=== PATIENT | male | born 1940 | race Caucasian/White ===

== ENCOUNTER 2018-06-17 12:15 | Emergency (ER) | payer MEDICARE ==
[2018-06-17 12:22] VITALS: RESP 18
--- NOTE | 2018-06-17 12:27 | ED ---
Chest Pain HPI - General Chief Complaint: Chest Pain Stated Complaint: chest pain Time Seen by Provider: 06/17/18 12:22 Source: patient, RN notes reviewed, old records reviewed Mode of arrival: ambulatory Limitations: no limitations - History of Present Illness Initial Comments: This is a 77-year-old male the ER for evaluation. Patient has history of high blood pressure coming with left-sided chest pain. No trauma. No fevers no cough or congestion occasional shortness of breath, chest pain is left scapular rating around anterior chest. Worse with exertion worse with movement. No improving factors MD Complaint: chest pain -: days(s) Onset: during rest, during exertion Pain Location: left chest Pain Radiation: back Severity: moderate Severity scale (1-10): 5 Quality: aching, sharp Consistency: constant Improves With: nothing Worsens With: nothing Treatments Prior to Arrival: none - Related Data Home Medications Medication Instructions Recorded Confirmed Finasteride [Proscar] 5 mg PO DAILY 06/17/18 06/17/18 amLODIPine [Norvasc] 10 mg PO DAILY 06/17/18 06/17/18 Allergies Allergy/AdvReac Type Severity Reaction Status Date / Time No Known Allergies Allergy Verified 06/17/18 13:16 Review of Systems ROS Statement: Those systems with pertinent positive or pertinent negative responses have been documented in the HPI. ROS Other: All systems not noted in ROS Statement are negative. Past Medical History Past Medical History: Hypertension, Prostate Disorder, Pulmonary Embolus (PE) Additional Past Medical History / Comment(s): PE to right lung History of Any Multi-Drug Resistant Organisms: None Reported Past Surgical History: No Surgical Hx Reported Past Psychological History: No Psychological Hx Reported Smoking Status: Never smoker Past Alcohol Use History: Occasional Past Drug Use History: None Reported General Exam Limitations: no limitations General appearance: alert, in no apparent distress Head exam: Present: atraumatic, normocephalic, normal inspection Eye exam: Present: normal appearance, PERRL, EOMI. Absent: scleral icterus, conjunctival injection, periorbital swelling ENT exam: Present: normal exam, mucous membranes moist Neck exam: Present: normal inspection. Absent: tenderness, meningismus, lymphadenopathy Respiratory exam: Present: normal lung sounds bilaterally. Absent: respiratory distress, wheezes, rales, rhonchi, stridor Cardiovascular Exam: Present: regular rate, normal rhythm, normal heart sounds. Absent: systolic murmur, diastolic murmur, rubs, gallop, clicks GI/Abdominal exam: Present: soft, normal bowel sounds. Absent: distended, tenderness, guarding, rebound, rigid Extremities exam: Present: normal inspection, full ROM, normal capillary refill. Absent: tenderness, pedal edema, joint swelling, calf tenderness Back exam: Present: normal inspection Neurological exam: Present: alert, oriented X3, CN II-XII intact Psychiatric exam: Present: normal affect, normal mood Skin exam: Present: warm, dry, intact, normal color. Absent: rash Course Vital Signs 06/17/18 06/17/18 06/17/18 12:17 12:47 15:13 Temperature 97.7 F 98 F Pulse Rate 60 64 Pulse Rate [ 80 Bilateral Sitting] Respiratory 18 18 Rate Blood Pressure 148/76 144/94 O2 Sat by Pulse 99 98 Oximetry Chest Pain MDM - MDM 27 male the ER with left-sided chest pain, chest pain is been persistent times a few days now. Worsening. CT is negative for acute disease. Patient be admitted for cardiac observation Critical Care Time Critical Care Time: Yes Total Critical Care Time: 31 Disposition Clinical Impression: Chest pain Disposition: HOME SELF-CARE Condition: Good Instructions: Chest Pain (ED) Is patient prescribed a controlled substance at d/c from ED?: No Referrals: Nonstaff,Physician [REFERRING] - 1-2 days
[2018-06-17 13:08] LABS: Basophils # (A) 0.1 k/uL (0-0.2); Basophils % (A) 1 %; Eosinophils # (A) 0.2 k/uL (0-0.7); Eosinophils % (A) 3 %; Lymphocytes # (A) 1.7 k/uL (1.0-4.8); Lymphocytes % (A) 23 %; MCH 29.3 pg (25.0-35.0); MCV 91.6 fL (80.0-100.0); Mean Platelet Volume 6.9; Monocytes # (A) 0.5 k/uL (0-1.0); Monocytes % (A) 6 %; Neutrophils % (A) 66 %; Platelet Count 248 k/uL (150-450); RDW 13.5 % (11.5-15.5); WBC 7.5 k/uL (3.8-10.6)
--- NOTE | 2018-06-17 13:15 | XR ---
EXAMINATION TYPE: XR chest 2V DATE OF EXAM: 06/17/2018 COMPARISON: NONE HISTORY: Chest pain and hypertension TECHNIQUE: Frontal and lateral views of the chest are obtained. FINDINGS: There is no focal air space opacity, pleural effusion, or pneumothorax seen. The cardiac silhouette size is mildly enlarged. Old healed right posterior rib fractures are noted. Multilevel mi ld degenerative changes of the thoracic spine are seen. Possible right humeral head bone island is we ll-circumscribed. IMPRESSION: No acute cardiopulmonary process.
[2018-06-17 13:22] LABS: Albumin 4.2 g/dL (3.5-5.0); Total Protein 7.2 g/dL (6.3-8.2)
[2018-06-17 13:23] LABS: Prothrombin Time 10.2 sec (9.0-12.0)
[2018-06-17 13:25] LABS: Potassium 4.4 mmol/L (3.5-5.1)
[2018-06-17 13:34] LABS: Partial Thromboplastin Time 20.6 sec (22.0-30.0)
[2018-06-17 13:36] LABS: Creatine Kinase 39 U/L (55-170)
[2018-06-17 13:49] LABS: Creatine Kinase MB 0.6 ng/mL (0.0-2.4); Troponin I <0.012 ng/mL (0.000-0.034)
[2018-06-17 15:13] VITALS: BP 144/94; PULSE 64; TEMP 98
[2018-06-17] MEDS ORDERED: NITROGLYCERIN SL TABS 0.4 MG TAB SUBLINGUAL PRN (16:33)
[2018-06-17] MEDS ORDERED: ASPIRIN 81 MG PO STA (16:33)
[2018-06-17] MEDS ORDERED: MORPHINE SULFATE 4 MG/ML SYRINGE IV PRN (16:33)
[2018-06-17] MEDS ORDERED: SODIUM CHLORIDE 0.9% 1,000 ML IV SCH (16:45)
[2018-06-18] MEDS ORDERED: ATORVASTATIN 80 MG TAB PO SCH (09:00)
[2018-06-18] MEDS ORDERED: ASPIRIN 325 MG TAB PO SCH (09:00)
== END 2018-06-17 15:13 | disposition home or self-care (01) ==
LOC: EC 12:15
DX: R07.89 Other chest pain (principal); R06.02 Shortness of breath; M54.6 Pain in thoracic spine; I10 Essential (primary) hypertension; N42.9 Disorder of prostate, unspecified; Z79.899 Other long term (current) drug therapy
CPT/HCPCS: 36415; 71046; 80053; 82550; 82553; 83735; 84484; 85025; 85610; 85730; 99291

== ENCOUNTER 2019-09-17 21:52 | Emergency (ER) | payer MEDICARE, OTHER ==
[2019-09-17 22:09] VITALS: BP 136/78; PULSE 78; RESP 18; TEMP 97.9
[2019-09-17] MEDS ORDERED: LIDOCAINE 1% INJ 10MG/ML (20 ML MDV) SQ ONE (22:14)
--- NOTE | 2019-09-17 22:38 | XR ---
EXAMINATION TYPE: XR finger LT DATE OF EXAM: 09/17/2019 COMPARISON: NONE HISTORY: Laceration TECHNIQUE: 3 views FINDINGS: There is some spurring at the IP joint of the thumb. I see no fracture nor dislocation. The re is no evidence of a foreign body. 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 No fracture seen.
--- NOTE | 2019-09-17 23:03 | ED ---
General Adult HPI - General Chief complaint: Wound/Laceration Stated complaint: Thumb lac Time Seen by Provider: 09/17/19 22:02 Source: patient, RN notes reviewed Mode of arrival: ambulatory Limitations: no limitations - History of Present Illness Initial comments: 79-year-old male presents to the emergency determine for a chief complaint of laceration. Patient states he was cutting vegetables when he accidentally cut his left thumb with a knife. He states that he was adequate, and but could not get the bleeding to stop as he takes Elavil class so did decide to be seen. States he cut it about 3 hours prior to arrival. She denies any difficulty moving his thumb. Denies any decreased sensation in the left thumb. Denies any other complaints or injuries at this time. States tetanus is up-to-date.Patient has no other complaints at this time including shortness of breath, chest pain, abdominal pain, nausea or vomiting, headache, or visual changes. - Related Data Home Medications Medication Instructions Recorded Confirmed Finasteride [Proscar] 5 mg PO DAILY 06/17/18 06/17/18 amLODIPine [Norvasc] 10 mg PO DAILY 06/17/18 06/17/18 Allergies Allergy/AdvReac Type Severity Reaction Status Date / Time No Known Allergies Allergy Verified 06/17/18 13:16 Review of Systems ROS Statement: Those systems with pertinent positive or pertinent negative responses have been documented in the HPI. ROS Other: All systems not noted in ROS Statement are negative. Past Medical History Past Medical History: Hypertension, Prostate Disorder, Pulmonary Embolus (PE) Additional Past Medical History / Comment(s): PE to right lung History of Any Multi-Drug Resistant Organisms: None Reported Past Surgical History: No Surgical Hx Reported Past Psychological History: No Psychological Hx Reported Smoking Status: Never smoker Past Alcohol Use History: Occasional Past Drug Use History: None Reported General Exam Limitations: no limitations General appearance: alert, in no apparent distress Head exam: Present: atraumatic, normocephalic, normal inspection Eye exam: Present: normal appearance, PERRL, EOMI. Absent: scleral icterus, conjunctival injection, periorbital swelling ENT exam: Present: normal exam, mucous membranes moist Neck exam: Present: normal inspection, full ROM. Absent: tenderness, meningismus, lymphadenopathy Respiratory exam: Present: normal lung sounds bilaterally. Absent: respiratory distress, wheezes, rales, rhonchi, stridor Cardiovascular Exam: Present: regular rate, normal rhythm, normal heart sounds. Absent: systolic murmur, diastolic murmur, rubs, gallop, clicks Extremities exam: Present: full ROM (Full range motion of the left thumb.), tenderness, normal capillary refill (Capillary refill less than 2 seconds in the left thumb.), other (Patient has a 3 cm laceration noted to the finger pad of the left thumb. I do not see any deep structure injury.). Absent: pedal edema, joint swelling, calf tenderness Course Vital Signs 09/17/19 22:04 Temperature 97.9 F Pulse Rate 78 Respiratory 18 Rate Blood Pressure 136/78 O2 Sat by Pulse 98 Oximetry Procedures - Laceration Laceration #1 Consent Obtained: verbal consent Indication: laceration Site: hand Size (cm): 3 Description: linear Depth: simple, single layer Anesthetic Used: lidocaine 1% Anesthesia Technique: local infiltration Amount (mls): 4 Pre-repair: wound explored, irrigated extensively Type of Sutures: other (Ethilon) Size of Sutures: 5-0 Number of Sutures: 8 Technique: simple, interrupted Patient Tolerated Procedure: well, no complications Medical Decision Making - Medical Decision Making X-ray reveals no fracture seen. No evidence of foreign body. Wound was cleaned thoroughly with iodine followed by saline pressure irrigation. 8 sutures were applied. Does not well approximated. Tetanus is up-to-date. I discussed monitoring for signs of infection. Discussed return parameters for this or any worsening symptoms. He will return in 7-10 days for suture removal. Disposition Clinical Impression: Laceration Disposition: HOME SELF-CARE Condition: Good Instructions (If sedation given, give patient instructions): Care For Your Stitches (ED), Laceration (ED) Additional Instructions: Please keep the area clean. Monitor for signs of infection such as spreading or streaking redness, drainage, or fever. Return in 7-10 days for suture removal. Return if you have any complications prior to that return to the ED. Otherwise follow-up with primary care. Is patient prescribed a controlled substance at d/c from ED?: No Referrals: Basilio Mejia MD [REFERRING] - 1-2 days Time of Disposition: 23:02
== END 2019-09-17 23:08 | disposition home or self-care (01) ==
LOC: EC 21:52
DX: S61.012A Laceration without foreign body of left thumb without damage to nail, initial encounter (principal); I10 Essential (primary) hypertension; N42.9 Disorder of prostate, unspecified; W26.0XXA Contact with knife, initial encounter; Y93.89 Activity, other specified
CPT/HCPCS: 73140; 99283; 12002; J2001

== ENCOUNTER 2019-10-18 18:01 | Emergency (ER) | payer MEDICARE, OTHER ==
[2019-10-18] MEDS ORDERED: IBUPROFEN 600 MG TAB PO STA (18:13)
[2019-10-18] MEDS ORDERED: cefTRIAXone IN SWFI 1,000 MG/10 ML SYRINGE IVP STA (18:13)
[2019-10-18] MEDS ORDERED: ACETAMINOPHEN TAB 500 MG TAB PO STA (18:13)
--- NOTE | 2019-10-18 18:23 | ED ---
General Adult HPI - General Chief complaint: Fever Stated complaint: dizziness Time Seen by Provider: 10/18/19 18:05 Source: patient, family, RN notes reviewed, old records reviewed Mode of arrival: wheelchair Limitations: no limitations - History of Present Illness Initial comments: This is a 79-year-old male who presents to the emergency department because he had prostate biopsy yesterday and today he was spiking a fever feeling weak. He denies dysuria hematuria or urinary frequency. Patient states he has a little bit of a cough but no shortness of breath or difficulty breathing. Patient denies any chest pain. Patient any nausea vomiting diarrhea. Patient's temp at home was 104 according to the . did not give any medicine for the fever. Patient denies any abdominal pain. - Related Data Home Medications Medication Instructions Recorded Confirmed Finasteride [Proscar] 5 mg PO DAILY 06/17/18 06/17/18 amLODIPine [Norvasc] 10 mg PO DAILY 06/17/18 06/17/18 Previous Rx's Medication Instructions Recorded Ciprofloxacin HCl [Cipro] 500 mg PO Q12HR #20 tablet 10/18/19 Allergies Allergy/AdvReac Type Severity Reaction Status Date / Time No Known Allergies Allergy Verified 10/18/19 18:05 Review of Systems ROS Statement: Those systems with pertinent positive or pertinent negative responses have been documented in the HPI. ROS Other: All systems not noted in ROS Statement are negative. Past Medical History Past Medical History: Hypertension, Prostate Disorder, Pulmonary Embolus (PE) Additional Past Medical History / Comment(s): PE to right lung History of Any Multi-Drug Resistant Organisms: None Reported Past Surgical History: No Surgical Hx Reported Additional Past Surgical History / Comment(s): prostate biopsy Past Psychological History: No Psychological Hx Reported Smoking Status: Never smoker Past Alcohol Use History: Occasional Past Drug Use History: None Reported General Exam - General Exam Comments Initial Comments: GENERAL: Patient is well-developed and well-nourished. Patient is nontoxic and well- hydrated and is in mild distress. ENT: Neck is soft and supple. No significant lymphadenopathy is noted. Oropharynx is clear. Moist mucous membranes. Neck has full range of motion without eliciting any pain. EYES: The sclera were anicteric and conjunctiva were pink and moist. Extraocular movements were intact and pupils were equal round and reactive to light. Eyelids were unremarkable. PULMONARY: Unlabored respirations. Good breath sounds bilaterally. No audible rales rhonchi or wheezing was noted. CARDIOVASCULAR: There is a regular rate and rhythm without any murmurs gallops or rubs. ABDOMEN: Soft and nontender with normal bowel sounds. SKIN: Skin is clear with no lesions or rashes and otherwise unremarkable. NEUROLOGIC: Patient is alert and oriented x3. Cranial nerves II through XII are grossly intact. Motor and sensory are also intact. Normal speech, volume and content. Symmetrical smile. MUSCULOSKELETAL: Normal extremities with adequate strength and full range of motion. LYMPHATICS: No significant lymphadenopathy is noted PSYCHIATRIC: Normal psychiatric evaluation. Limitations: no limitations Course Vital Signs 10/18/19 10/18/19 10/18/19 18:02 19:14 19:20 Temperature 102.9 F H 101.5 F H Pulse Rate 112 H 86 96 Respiratory 20 18 20 Rate Blood Pressure 146/79 134/79 115/97 O2 Sat by Pulse 94 L 98 95 Oximetry Medical Decision Making - Medical Decision Making EKG shows a sinus rhythm at 99 bpm IN interval is 286 QRS is 86 QT interval is 298 QT C is 382. Patient's EKG shows no ST segment elevation or depression. Chest x-ray shows no acute abnormality. I gave the patient 2 g Rocephin assuming that the patient had a potential infection postop. - Lab Data Result diagrams: 10/18/19 18:25 10/18/19 18:25 Lab Results 10/18/19 10/18/19 10/18/19 Range/Units 18:25 18:25 18:25 WBC 12.8 H (3.8-10.6) k/uL RBC 4.48 (4.30-5.90) m/uL Hgb 13.7 (13.0-17.5) gm/dL Hct 40.4 (39.0-53.0) % MCV 90.2 (80.0-100.0) fL MCH 30.5 (25.0-35.0) pg MCHC 33.8 (31.0-37.0) g/dL RDW 12.9 (11.5-15.5) % Plt Count 217 (150-450) k/uL Neutrophils % 89 % Lymphocytes % 5 % Monocytes % 4 % Eosinophils % 2 % Basophils % 0 % Neutrophils # 11.5 H (1.3-7.7) k/uL Lymphocytes # 0.6 L (1.0-4.8) k/uL Monocytes # 0.5 (0-1.0) k/uL Eosinophils # 0.2 (0-0.7) k/uL Basophils # 0.0 (0-0.2) k/uL PT 10.2 (9.0-12.0) sec INR 1.0 (<1.2) APTT 20.5 L (22.0-30.0) sec Sodium 134 L (137-145) mmol/L Potassium 3.8 (3.5-5.1) mmol/L Chloride 105 (98-107) mmol/L Carbon Dioxide 21 L (22-30) mmol/L Anion Gap 8 mmol/L BUN 20 (9-20) mg/dL Creatinine 0.95 (0.66-1.25) mg/dL Est GFR (CKD-EPI)AfAm 89 (>60 ml/min/1.73 sqM) Est GFR (CKD-EPI)NonAf 77 (>60 ml/min/1.73 sqM) Glucose 107 H (74-99) mg/dL Plasma Lactic Acid [place] (0.7-2.0) mmol/L Calcium 9.6 (8.4-10.2) mg/dL Total Bilirubin 1.1 (0.2-1.3) mg/dL AST 22 (17-59) U/L ALT 14 (4-49) U/L Alkaline Phosphatase 59 (38-126) U/L Total Protein 6.9 (6.3-8.2) g/dL Albumin 4.0 (3.5-5.0) g/dL Urine Color Urine Appearance (Clear) Urine pH (5.0-8.0) Ur Specific [place] (1.001-1.035) Urine Protein (Negative) Urine Glucose (UA) (Negative) Urine Ketones (Negative) Urine Blood (Negative) Urine Nitrite (Negative) Urine Bilirubin (Negative) Urine Urobilinogen (<2.0) mg/dL Ur Leukocyte Esterase (Negative) Urine RBC (0-5) /hpf Urine WBC (0-5) /hpf Hyaline Casts (0-2) /lpf Urine Mucus (None) /hpf Influenza Type A RNA (Not Detectd) Influenza Type B (PCR) (Not Detectd) 10/18/19 10/18/19 10/18/19 Range/Units 18:25 18:25 18:25 WBC (3.8-10.6) k/uL RBC (4.30-5.90) m/uL Hgb (13.0-17.5) gm/dL Hct (39.0-53.0) % MCV (80.0-100.0) fL MCH (25.0-35.0) pg MCHC (31.0-37.0) g/dL RDW (11.5-15.5) % Plt Count (150-450) k/uL Neutrophils % % Lymphocytes % % Monocytes % % Eosinophils % % Basophils % % Neutrophils # (1.3-7.7) k/uL Lymphocytes # (1.0-4.8) k/uL Monocytes # (0-1.0) k/uL Eosinophils # (0-0.7) k/uL Basophils # (0-0.2) k/uL PT (9.0-12.0) sec INR (<1.2) APTT (22.0-30.0) sec Sodium (137-145) mmol/L Potassium (3.5-5.1) mmol/L Chloride (98-107) mmol/L Carbon Dioxide (22-30) mmol/L Anion Gap mmol/L BUN (9-20) mg/dL Creatinine (0.66-1.25) mg/dL Est GFR (CKD-EPI)AfAm (>60 ml/min/1.73 sqM) Est GFR (CKD-EPI)NonAf (>60 ml/min/1.73 sqM) Glucose (74-99) mg/dL Plasma Lactic Acid [place] 1.2 (0.7-2.0) mmol/L Calcium (8.4-10.2) mg/dL Total Bilirubin (0.2-1.3) mg/dL AST (17-59) U/L ALT (4-49) U/L Alkaline Phosphatase (38-126) U/L Total Protein (6.3-8.2) g/dL Albumin (3.5-5.0) g/dL Urine Color Yellow Urine Appearance Clear (Clear) Urine pH 5.5 (5.0-8.0) Ur Specific [place] 1.018 (1.001-1.035) Urine Protein Negative (Negative) Urine Glucose (UA) Negative (Negative) Urine Ketones Negative (Negative) Urine Blood Small H (Negative) Urine Nitrite Negative (Negative) Urine Bilirubin Negative (Negative) Urine Urobilinogen <2.0 (<2.0) mg/dL Ur Leukocyte Esterase Small H (Negative) Urine RBC 33 H (0-5) /hpf Urine WBC 27 H (0-5) /hpf Hyaline Casts 3 H (0-2) /lpf Urine Mucus Rare H (None) /hpf Influenza Type A RNA Not Detected (Not Detectd) Influenza Type B (PCR) Not Detected (Not Detectd) Disposition Clinical Impression: Postoperative infection, UTI (urinary tract infection) Disposition: HOME SELF-CARE Condition: Good Instructions (If sedation given, give patient instructions): Urinary Tract Infection in Men (ED) Prescriptions: Ciprofloxacin HCl [Cipro] 500 mg PO Q12HR #20 tablet Is patient prescribed a controlled substance at d/c from ED?: No Referrals: Jaden Pacheco DO [Primary Care Provider] - 1-2 days Time of Disposition: 19:53
[2019-10-18 18:48] LABS: Basophils % (A) 0 %; Eosinophils # (A) 0.2 k/uL (0-0.7); Eosinophils % (A) 2 %; HCT 40.4 % (39.0-53.0); HGB 13.7 gm/dL (13.0-17.5); Lymphocytes # (A) 0.6 k/uL (1.0-4.8); Lymphocytes % (A) 5 %; MCH 30.5 pg (25.0-35.0); MCHC 33.8 g/dL (31.0-37.0); MCV 90.2 fL (80.0-100.0); Mean Platelet Volume 7.2; Monocytes # (A) 0.5 k/uL (0-1.0); Monocytes % (A) 4 %; Neutrophils # (A) 11.5 k/uL (1.3-7.7); Neutrophils % (A) 89 %; Platelet Count 217 k/uL (150-450); RBC 4.48 m/uL (4.30-5.90); RDW 12.9 % (11.5-15.5); WBC 12.8 k/uL (3.8-10.6)
[2019-10-18 18:56] LABS: Calcium 9.6 mg/dL (8.4-10.2); Potassium 3.8 mmol/L (3.5-5.1); Total Bilirubin 1.1 mg/dL (0.2-1.3); Total Protein 6.9 g/dL (6.3-8.2)
[2019-10-18 19:04] LABS: Appearance,Urine Clear (Clear); Bilirubin,Urine Negative (Negative); Blood,Urine Small (Negative); Color,Urine Yellow; Glucose,Urine (UA) Negative (Negative); Hyaline Casts,Urine 3 /lpf (0-2); Ketones,Urine Negative (Negative); Leukocyte Esterase,Urine Small (Negative); Mucus,Urine Rare /hpf; Nitrite,Urine Negative (Negative); PH, Urine 5.5 (5.0-8.0); Protein,Urine Negative (Negative); RBC,Urine 33 /hpf (0-5); Specific Gravity,Urine 1.018 (1.001-1.035); Urobilinogen,Urine <2.0 mg/dL (<2.0); WBC,Urine 27 /hpf (0-5)
[2019-10-18 19:09] LABS: Prothrombin Time 10.2 sec (9.0-12.0)
[2019-10-18] MEDS: SODIUM CHLORIDE 0.9% 500 ML 500 ML IV SCH ×3 (19:10→20:45)
[2019-10-18 19:13] LABS: Partial Thromboplastin Time 20.5 sec (22.0-30.0)
--- NOTE | 2019-10-18 19:30 | XR ---
EXAMINATION TYPE: XR chest 2V DATE OF EXAM: 10/18/2019 COMPARISON: June 17, 2018 HISTORY: Fever TECHNIQUE: FINDINGS: Heart is mildly enlarged. There is no heart failure. Lungs are clear of consolidation. Cost ophrenic angles are clear. Bony thorax is intact. IMPRESSION: Mild cardiomegaly. No active cardiopulmonary disease. No change.
[2019-10-18 20:48] VITALS: BP 127/71; PULSE 87; RESP 16; TEMP 98.3
== END 2019-10-18 21:15 | disposition home or self-care (01) ==
LOC: EC 18:01 → SUPCPDRO 18:01 → EC 21:15
DX: N39.0 Urinary tract infection, site not specified (principal); T81.40XA Infection following a procedure, unspecified, initial encounter; I10 Essential (primary) hypertension; Z79.899 Other long term (current) drug therapy; Z86.711 Personal history of pulmonary embolism
CPT/HCPCS: 36415; 80053; 83605; 85025; 85610; 85730; 81001; 87040; 87086; 87077; 87186; 87502; 71046; 99284; 96365; 96375; 96361; J0696

== ENCOUNTER 2019-10-19 03:49 | Inpatient (IN) | payer MEDICARE, OTHER ==
[2019-10-19] MEDS ORDERED: ACETAMINOPHEN TAB 325 MG TAB PO STA (03:59)
[2019-10-19] MEDS ORDERED: IBUPROFEN 600 MG TAB PO STA (03:59)
[2019-10-19] MEDS: SODIUM CHLORIDE 0.9% 500 ML 500 ML IV SCH (04:10)
[2019-10-19 04:17] LABS: Basophils % (A) 0 %; Eosinophils # (A) 0.1 k/uL (0-0.7); Eosinophils % (A) 2 %; HCT 38.9 % (39.0-53.0); HGB 13.2 gm/dL (13.0-17.5); Lymphocytes # (A) 0.5 k/uL (1.0-4.8); Lymphocytes % (A) 9 %; MCH 30.5 pg (25.0-35.0); MCHC 33.8 g/dL (31.0-37.0); MCV 90.2 fL (80.0-100.0); Mean Platelet Volume 7.2; Monocytes # (A) 0.1 k/uL (0-1.0); Monocytes % (A) 1 %; Neutrophils % (A) 88 %; Platelet Count 175 k/uL (150-450); RBC 4.31 m/uL (4.30-5.90); RDW 13.1 % (11.5-15.5); WBC 5.7 k/uL (3.8-10.6)
[2019-10-19 04:24] LABS: Albumin 3.6 g/dL (3.5-5.0); Calcium 9.2 mg/dL (8.4-10.2); Potassium 3.9 mmol/L (3.5-5.1); Total Bilirubin 1.5 mg/dL (0.2-1.3); Total Protein 6.4 g/dL (6.3-8.2)
[2019-10-19 04:31] LABS: INR 1.1 (<1.2); Prothrombin Time 10.8 sec (9.0-12.0)
[2019-10-19 04:36] LABS: Partial Thromboplastin Time 21.6 sec (22.0-30.0)
--- NOTE | 2019-10-19 05:07 | ED ---
Male Urogenital HPI - General Chief complaint: Urogenital Stated complaint: Elevated BP Time Seen by Provider: 10/19/19 03:54 Source: patient Mode of arrival: wheelchair - History of Present Illness Initial comments: Also pleasant 79-year-old gentleman who presents to the ER today for reevaluation of fever. Miguel A had a prostate biopsy earlier this week, yesterday he developed fever and was having urinary frequency, he was evaluated in the emergency department and noted to have a urinary tract infection. He received IV antibiotics was discharged home with Cipro. Despite taking antipyretics at home patient continued to have Aleah's and feel unwell. attempted to chec k his blood pressure but was getting an air message she noted that his heart rate was very high and was concerned his blood pressure was low when he had a fevers and she brought him back for reevaluation. Patient reports he just doesn't feel good. He does have urinary frequency and dribbling but no retention. - Related Data Home Medications Medication Instructions Recorded Confirmed Finasteride [Proscar] 5 mg PO DAILY 06/17/18 06/17/18 amLODIPine [Norvasc] 10 mg PO DAILY 06/17/18 06/17/18 Previous Rx's Medication Instructions Recorded Ciprofloxacin HCl [Cipro] 500 mg PO Q12HR #20 tablet 10/18/19 Allergies Allergy/AdvReac Type Severity Reaction Status Date / Time No Known Allergies Allergy Verified 10/18/19 18:05 Review of Systems ROS Statement: Those systems with pertinent positive or pertinent negative responses have been documented in the HPI. ROS Other: All systems not noted in ROS Statement are negative. Past Medical History Past Medical History: Hypertension, Prostate Disorder, Pulmonary Embolus (PE) Additional Past Medical History / Comment(s): PE to right lung History of Any Multi-Drug Resistant Organisms: None Reported Past Surgical History: No Surgical Hx Reported Additional Past Surgical History / Comment(s): prostate biopsy Past Psychological History: No Psychological Hx Reported Smoking Status: Never smoker Past Alcohol Use History: Occasional Past Drug Use History: None Reported General Exam - General Exam Comments Initial Comments: Physical Exam GENERAL: Patient is well-developed and well-nourished. Toxic appearance HENT: Normocephalic, Atraumatic. EYES: PERRL, EOMI PULMONARY: Unlabored respirations. No audible rales rhonchi or wheezing was noted. CARDIOVASCULAR: Tachycardic, irregularly irregular ABDOMEN: Soft and nontender with normal bowel sounds. SKIN: Hot to the touch : Normal external genitalia NEUROLOGIC: Patient is alert and oriented x3. Moving all extremities spontaneously MUSCULOSKELETAL: Normal extremities with adequate strength and full range of motion. No lower extremity swelling or edema. No calf tenderness. PSYCHIATRIC: Normal psychiatric evaluation. Course Vital Signs 10/19/19 10/19/19 03:56 04:43 Temperature 102.7 F H Pulse Rate 119 H 100 Respiratory 20 16 Rate Blood Pressure 112/67 137/67 O2 Sat by Pulse 94 L 92 L Oximetry Procedures - Sepsis Sepsis Focused Exam #1 Sepsis Focused Exam Date: 10/19/19 Sepsis Focused Exam Time: : Sepsis Focused Exam Complete: Yes Vital Signs & RN Notes Reviewed: Yes Capillary Refill: < 2 Seconds: Fingers, Toes Peripheral Pulses: Normal: Radial (R), Radial (L) Skin Color: Normal for Patient Respiratory Exam: normal lung sounds Cardiovascular Exam: regular rate Medical Decision Making - Medical Decision Making The patient was seen and evaluated, history is obtained from the patient History and physical exam were turning for sepsis likely secondary to patient's urinary tract infection Repeat septic workup was initiated Labs resulted with an improving leukocytosis however mildly worsening creatinine and elevation of the lactic acid Patient was treated with IV fluids antipyretics Rocephin and Levaquin Patient care was discussed with admitting physician Dr. Ravi who accepts admission for septic patient with urinary tract infection, possible prostatitis in the post prostate biopsy setting. - Lab Data Result diagrams: 10/19/19 04:05 10/19/19 04:05 Lab Results 10/19/19 10/19/19 10/19/19 Range/Units 04:05 04:05 04:05 WBC 5.7 (3.8-10.6) k/uL RBC 4.31 (4.30-5.90) m/uL Hgb 13.2 (13.0-17.5) gm/dL Hct 38.9 L (39.0-53.0) % MCV 90.2 (80.0-100.0) fL MCH 30.5 (25.0-35.0) pg MCHC 33.8 (31.0-37.0) g/dL RDW 13.1 (11.5-15.5) % Plt Count 175 (150-450) k/uL Neutrophils % 88 % Lymphocytes % 9 % Monocytes % 1 % Eosinophils % 2 % Basophils % 0 % Neutrophils # 5.0 (1.3-7.7) k/uL Lymphocytes # 0.5 L (1.0-4.8) k/uL Monocytes # 0.1 (0-1.0) k/uL Eosinophils # 0.1 (0-0.7) k/uL Basophils # 0.0 (0-0.2) k/uL PT 10.8 (9.0-12.0) sec INR 1.1 (<1.2) APTT 21.6 L (22.0-30.0) sec Sodium 137 (137-145) mmol/L Potassium 3.9 (3.5-5.1) mmol/L Chloride 108 H (98-107) mmol/L Carbon Dioxide 18 L (22-30) mmol/L Anion Gap 11 mmol/L BUN 21 H (9-20) mg/dL Creatinine 1.00 (0.66-1.25) mg/dL Est GFR (CKD-EPI)AfAm 84 (>60 ml/min/1.73 sqM) Est GFR (CKD-EPI)NonAf 72 (>60 ml/min/1.73 sqM) Glucose 93 (74-99) mg/dL Plasma Lactic Acid Lawrence (0.7-2.0) mmol/L Calcium 9.2 (8.4-10.2) mg/dL Total Bilirubin 1.5 H (0.2-1.3) mg/dL AST 50 (17-59) U/L ALT 23 (4-49) U/L Alkaline Phosphatase 58 (38-126) U/L Total Protein 6.4 (6.3-8.2) g/dL Albumin 3.6 (3.5-5.0) g/dL Urine Color Urine Appearance (Clear) Urine pH (5.0-8.0) Ur Specific Perry (1.001-1.035) Urine Protein (Negative) Urine Glucose (UA) (Negative) Urine Ketones (Negative) Urine Blood (Negative) Urine Nitrite (Negative) Urine Bilirubin (Negative) Urine Urobilinogen (<2.0) mg/dL Ur Leukocyte Esterase (Negative) Urine RBC (0-5) /hpf Urine WBC (0-5) /hpf Ur Squamous Epith Cells (0-4) /hpf Urine Mucus (None) /hpf Influenza Type A RNA (Not Detectd) Influenza Type B (PCR) (Not Detectd) 10/19/19 10/19/19 10/19/19 Range/Units 04:05 04:20 04:55 WBC (3.8-10.6) k/uL RBC (4.30-5.90) m/uL Hgb (13.0-17.5) gm/dL Hct (39.0-53.0) % MCV (80.0-100.0) fL MCH (25.0-35.0) pg MCHC (31.0-37.0) g/dL RDW (11.5-15.5) % Plt Count (150-450) k/uL Neutrophils % % Lymphocytes % % Monocytes % % Eosinophils % % Basophils % % Neutrophils # (1.3-7.7) k/uL Lymphocytes # (1.0-4.8) k/uL Monocytes # (0-1.0) k/uL Eosinophils # (0-0.7) k/uL Basophils # (0-0.2) k/uL PT (9.0-12.0) sec INR (<1.2) APTT (22.0-30.0) sec Sodium (137-145) mmol/L Potassium (3.5-5.1) mmol/L Chloride (98-107) mmol/L Carbon Dioxide (22-30) mmol/L Anion Gap mmol/L BUN (9-20) mg/dL Creatinine (0.66-1.25) mg/dL Est GFR (CKD-EPI)AfAm (>60 ml/min/1.73 sqM) Est GFR (CKD-EPI)NonAf (>60 ml/min/1.73 sqM) Glucose (74-99) mg/dL Plasma Lactic Acid Lawrence 3.0 H* (0.7-2.0) mmol/L Calcium (8.4-10.2) mg/dL Total Bilirubin (0.2-1.3) mg/dL AST (17-59) U/L ALT (4-49) U/L Alkaline Phosphatase (38-126) U/L Total Protein (6.3-8.2) g/dL Albumin (3.5-5.0) g/dL Urine Color Light Yellow Urine Appearance Clear (Clear) Urine pH 5.5 (5.0-8.0) Ur Specific Perry 1.012 (1.001-1.035) Urine Protein Trace H (Negative) Urine Glucose (UA) Negative (Negative) Urine Ketones Negative (Negative) Urine Blood Moderate H (Negative) Urine Nitrite Negative (Negative) Urine Bilirubin Negative (Negative) Urine Urobilinogen <2.0 (<2.0) mg/dL Ur Leukocyte Esterase Large H (Negative) Urine RBC 108 H (0-5) /hpf Urine WBC 68 H (0-5) /hpf Ur Squamous Epith Cells <1 (0-4) /hpf Urine Mucus Rare H (None) /hpf Influenza Type A RNA Not Detected (Not Detectd) Influenza Type B (PCR) Not Detected (Not Detectd) - EKG Data -: EKG Interpreted by Me EKG Comments: EKG was obtained due to tachycardia, EKG was obtained at 3:59 AM, rate is 109 rhythm is narrow complex irregularly irregular consistent with atrial fibrillation, QRS narrow 84, QTC is prolonged at 522. no acute ST elevations or depressions no evidence of acute ischemia or infarction. Critical Care Time Critical Care Time: Yes Total Critical Care Time: 30 Critical Care Time: Critical care time was exclusive of separately billable procedures and treating other patients and teaching time. Critical care was necessary to treat or prevent imminent or life-threatening deterioration. Given the critical condition in which the patient arrived, the patient was immediately assessed by myself and the nurse, and cardiac monitoring initiated due to the potential for rapid decompensation of the patient's clinical condition. During the course of the patients stay, I spent a considerable amount of time at the bedside performing serial re-evaluations of the patient's hemodynamic and clinical status because of the recognized potential threat to life or limb in this condition. I then had a chance to review not only all of the available current laboratory and radiographic studies obtained today, but I also reviewed old records available to me at the time. Additionally, any ancillary information available including pearl digger records were reviewed. Sequential vital signs were obtained. Disposition Clinical Impression: UTI (urinary tract infection), Postoperative infection, Sepsis Disposition: ADMITTED IP TO THIS HOSP Condition: Stable Is patient prescribed a controlled substance at d/c from ED?: No Referrals: Jaden Pacheco, [Primary Care Provider] - 1-2 days
[2019-10-19] MEDS ORDERED: NALOXONE 0.4 MG/ML 1 ML VIAL IV PRN (05:11)
[2019-10-19 05:13] LABS: Appearance,Urine Clear (Clear); Bilirubin,Urine Negative (Negative); Blood,Urine Moderate (Negative); Color,Urine Light Yellow; Glucose,Urine (UA) Negative (Negative); Ketones,Urine Negative (Negative); Leukocyte Esterase,Urine Large (Negative); Mucus,Urine Rare /hpf; Nitrite,Urine Negative (Negative); PH, Urine 5.5 (5.0-8.0); Protein,Urine Trace (Negative); RBC,Urine 108 /hpf (0-5); Specific Gravity,Urine 1.012 (1.001-1.035); Squamous Epithelial Cell,Urine <1 /hpf (0-4); Urobilinogen,Urine <2.0 mg/dL (<2.0); WBC,Urine 68 /hpf (0-5)
[2019-10-19] MEDS ORDERED: LACTATED RINGERS 1,000 ML IV SCH (05:15)
[2019-10-19] MEDS ORDERED: LEVOFLOXACIN 750MG-D5W PMX 750 MG in DEXTROSE/WATER 1 150ML.BAG IVPB STA (05:16)
[2019-10-19] MEDS ORDERED: SODIUM CHLORIDE 0.9% 1,000 ML IV ONE (06:15)
--- NOTE | 2019-10-19 06:40 | P.HPIM ---
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 The history supplemented by the at the bedside. The patient underwent a prostate biopsy for an elevated PSA on 10/16. On the evening of 10/17, he developed fever with shaking chills, with T-max of 104 at home. The reported that the patient also looks to have labored breathing and confusion, for which she had brought into the ED. The patient was noted to have a UTI, was prescribed ciprofloxacin, advised to take antipyretics and was discharged home. Upon returning to home, the patient continued to have fevers despite taking Tylenol a nd Motrin. The reports that she attempted to take his blood pressure several times but was unable to get a reading. She also noticed that his pulse was 120+, thereby she brought him back to the ED. At time of the interview, the patient notes that he feels somewhat better. He endorsed some pelvic pressure but denied dysuria, hematuria, urinary urgency, frequency, or abdominal pain. Patient also denied chest pain, shortness of breath, nausea, vomiting, or diarrhea. He underwent an extensive evaluation in the emergency room. Vitals upon presentation revealed a temperature of 102.7, pulse of 119, BP 112/67, respiratory rate 20, and SpO2 94% on room air. EKG as reviewed by me revealed Afib @ 109 bpm with prolonged QTc of 522. Laboratory evaluation revealed a CBC count of 5.7 (down from 12.8), hemoglobin 13.2, platelets 175, UA consistent with UTI, lactic acid 3.0 (up from 1.2), sodium 137, potassium 3.9, CO2 18, BUN 21, and creatinine 1.0. The patient received 1 L normal saline bolus, along with IV antibiotics ceftriaxone and Levaquin and was admitted to the medicine service for further management. Review of Systems Pertinent positives and negatives as discussed in HPI, a complete review of systems was performed and all other systems are negative. Past Medical History Past Medical History: Hypertension, Prostate Disorder, Pulmonary Embolus (PE) Additional Past Medical History / Comment(s): PE to right lung History of Any Multi-Drug Resistant Organisms: None Reported Past Surgical History: No Surgical Hx Reported Additional Past Surgical History / Comment(s): prostate biopsy Past Psychological History: No Psychological Hx Reported Smoking Status: Never smoker Past Alcohol Use History: Occasional Past Drug Use History: None Reported Medications and Allergies Home Medications Medication Instructions Recorded Confirmed Type Finasteride [Proscar] 5 mg PO DAILY 06/17/18 06/17/18 History amLODIPine [Norvasc] 10 mg PO DAILY 06/17/18 06/17/18 History Ciprofloxacin HCl [Cipro] 500 mg PO Q12HR #20 tablet 10/18/19 Rx Allergies Allergy/AdvReac Type Severity Reaction Status Date / Time No Known Allergies Allergy Verified 10/18/19 18:05 Physical Exam Vitals: Vital Signs Temp Pulse Resp BP Pulse Ox 10/19/19 05:54 96 16 122/71 96 10/19/19 05:23 95 10/19/19 05:20 99.3 F 10/19/19 04:43 100 16 137/67 92 L 10/19/19 03:56 102.7 F H 119 H 20 112/67 94 L Intake and Output 10/18/19 10/18/19 10/19/19 14:59 22:59 06:59 Other: Weight 81.647 kg General: non toxic, no distress, appears at stated age, normal weight Derm: no unusual rashes/lesions no unusual ecchymoses, warm, dry Head: atraumatic, normocephalic, symmetric Eyes: EOMI, no lid lag, anicteric sclera, pupils equal round reactive to light ENT: Nose and ears atraumatic, no thrush, no pharyngeal erythema Neck: No thyromegaly, no cervical lymphadenopathy, trachea midline, supple Mouth: no lip lesion, mucus membranes moist Cardiovascular: S1S2 reg, no murmur, positive posterior tibial pulse bilateral, no edema, capillary refill less than 2 seconds Lungs: CTA bilateral, no rhonchi, no rales , no accessory muscle use Abdominal: soft, nontender to palpation, no guarding, no appreciable organomegaly, normal bowel sounds : Mild prostate tenderness on examination Ext: no gross muscle atrophy, muscle strength 5 out of 5 in all 4 extremities grossly, no contractures, Neuro: CN II-XI grossly intact, light touch intact all 4 extremities, finger to nose within normal limits, Psych: Alert, oriented, appropriate affect Results CBC & Chem 7: 10/19/19 04:05 10/19/19 04:05 Labs: Abnormal Lab Results - Last 24 Hours (Table) 10/19/19 10/19/19 10/19/19 Range/Units 04:05 04:05 04:05 Hct 38.9 L (39.0-53.0) % Lymphocytes # 0.5 L (1.0-4.8) k/uL APTT 21.6 L (22.0-30.0) sec Chloride 108 H (98-107) mmol/L Carbon Dioxide 18 L (22-30) mmol/L BUN 21 H (9-20) mg/dL Plasma Lactic Acid Lawrence (0.7-2.0) mmol/L Total Bilirubin 1.5 H (0.2-1.3) mg/dL Urine Protein (Negative) Urine Blood (Negative) Ur Leukocyte Esterase (Negative) Urine RBC (0-5) /hpf Urine WBC (0-5) /hpf Urine Mucus (None) /hpf 10/19/19 10/19/19 Range/Units 04:05 04:55 Hct (39.0-53.0) % Lymphocytes # (1.0-4.8) k/uL APTT (22.0-30.0) sec Chloride (98-107) mmol/L Carbon Dioxide (22-30) mmol/L BUN (9-20) mg/dL Plasma Lactic Acid Lawrence 3.0 H* (0.7-2.0) mmol/L Total Bilirubin (0.2-1.3) mg/dL Urine Protein Trace H (Negative) Urine Blood Moderate H (Negative) Ur Leukocyte Esterase Large H (Negative) Urine RBC 108 H (0-5) /hpf Urine WBC 68 H (0-5) /hpf Urine Mucus Rare H (None) /hpf Assessment and Plan Plan: Severe sepsis secondary to acute prostatitis, nosocomial -C/w Ceftriaxone 1g qd. Start Gentamicin 100 mg q8h -Follow up urine culture -Hold off on fluoroquinolones due to prolonged QT and possible resistance -Monitor lactate to resolution -Continue IV fluids normal saline 150 mL an hour, second bolus ordered Prolonged QTc -Cardiology consulted for Afib -Avoid further medications associated with prolonging QT A. fib on EKG -Patient and family denies any previous history of A. fib -Previous EKGs revealed sinus arrhythmias with distinct P waves -Consult cardiology for risk stratification for possible lone A. fib -Patient already on Eliquis for history of DVT/PE -Cardiac monitoring Elevated total bilirubin -Likely secondary to severe sepsis -Monitor for now Hx of DVT/PE -Patient was advised to resume Eliquis 48 hours after biopsy -Resume in am History of hypertension -Hold off on antihypertensives in setting of severe sepsis -Resume as warranted DVT prophylaxis -Heparin subq/Eliquis The patient is admitted with an anticipated greater than 2 midnight stay for evaluation of acute prostatitis CODE STATUS: Full Code Discussed with: Patient, , daughter Anticipated discharge date: 2-[address]: Home A total of 45 minutes was spent on the care of this complex patient more than 50% of the time was spent in counseling and care coordination.
[2019-10-19] MEDS ORDERED: GENTAMICIN PER PHARMACY MISCELLANE PRN (06:47)
[2019-10-19] MEDS ORDERED: GENTAMICIN 140 MG in SODIUM CHLORIDE 0.9% 100 ML IVPB SCH (08:00)
[2019-10-19] MEDS: SODIUM CHLORIDE 0.9% 1,000 ML IV SCH ×3 (08:36→21:00)
[2019-10-19] MEDS ORDERED: amLODIPine 10 MG TAB PO SCH (09:00)
[2019-10-19] MEDS ORDERED: GENTAMICIN 240 MG in SODIUM CHLORIDE 0.9% 100 ML IVPB ONE (10:00)
[2019-10-19] MEDS: APIXABAN 5 MG TAB PO SCH ×2 (10:12→20:59)
--- NOTE | 2019-10-19 11:58 | P.CRDCN ---
History of Present Illness History of present illness: HISTORY OF PRESENTING ILLNESS This is a pleasant 79-year-old male past medical history significant for PE and DVT maintained on long-term anticoagulation and hypertension. 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 We have been asked to see in consultation for atrial fibrillation. He presented to the hospital with symptoms of fever and confusion status post prostate biopsy. He has been diagnosed with sepsis secondary to acute prostatitis and initiated on IV antibiotics as well as fluid replacement. On arrival to the emergency department EKG showed atrial fibrillation with mildly rapid ventricular response heart rate is 109. Review previous EKGs in the past reveal sinus mechanism with first-degree AV block and frequent PACs. Laboratory data reviewed, WBC 5.7, hemoglobin 13.2, platelets 175, sodium 137, potassium 3.9, creatinine 1.0, lactic acid on admission 3. 0 repeat this morning 1.2 and evidence suggestive of urinary tract infection. Current daily cardiac medications include Eliquis 5 mg twice a day and amlodipine 10 mg daily. He is seen and examined resting comfortably in bed laying flat no acute distress. He denies symptoms of chest pain, shortness of breath, dizziness or palpitations. REVIEW OF SYSTEMS At the time of my exam: CONSTITUTIONAL: Denies fever or chills. CARDIOVASCULAR: Denies chest pain, shortness of breath, orthopnea, PND or palpitations. RESPIRATORY: Denies cough. GASTROINTESTINAL: Denies abdominal pain, diarrhea, constipation, nausea or vomiting. MUSCULOSKELETAL: Denies myalgias. NEUROLOGIC: Denies numbness, tingling or weakness. ENDOCRINE: Denies fatigue, weight change, polydipsia or polyurina. GENITOURINARY: Denies burning, hematuria or urgency with micturation. HEMATOLOGIC: Denies history of anemia or bleeding. PHYSICAL EXAMINATION Blood pressure 93/65 heart rate 89 afebrile and maintaining oxygen saturation on nasal cannula. CONSTITUTIONAL: No apparent distress. HEENT: Head is normocephalic. Pupils are equal, round. Sclerae anicteric. Mucous membranes of the mouth are moist. No JVD. No carotid bruit. CHEST EXAMINATION: Lungs are clear to auscultation. No chest wall tenderness is noted on palpation or with deep breathing. HEART EXAMINATION: Regular rate and rhythm. S1, S2 heard. No murmurs, gallops or rub. ABDOMEN: Soft, nontender. Positive bowel sounds. EXTREMITIES: 2+ peripheral pulses, no lower extremity edema and no calf tenderness. NEUROLOGIC EXAMINATION: Patient is awake, alert and oriented x3. ASSESSMENT Paroxysmal atrial fibrillation, has converted to sinus. New onset. 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 Obtain 2D echocardiogram and doppler study to assess cardiac structure and function. Continue eliquis for roasterman anticoagulation. Pt and his are aware of the risks involved with use of Eliquis. No beta blockers at this time given his hypotension. Thank you kindly for this consultation. Nurse Practitioner note has been reviewed, I agree with a documented findings and plan of care. Patient was seen and examined. Past Medical History Past Medical History: Hypertension, Prostate Disorder, Pulmonary Embolus (PE) Additional Past Medical History / Comment(s): PE to right lung History of Any Multi-Drug Resistant Organisms: None Reported Past Surgical History: No Surgical Hx Reported Additional Past Surgical History / Comment(s): prostate biopsy Past Anesthesia/Blood Transfusion Reactions: No Reported Reaction Past Psychological History: No Psychological Hx Reported Smoking Status: Never smoker Past Alcohol Use History: Occasional Past Drug Use History: None Reported - Past Family History Brother(s) Family Medical History: Coronary Artery Disease (CAD), Deep Vein Thrombosis (DVT), Pulmonary Embolus Father Family Medical History: Coronary Artery Disease (CAD), CVA/TIA, Deep Vein Thromb osis (DVT) Medications and Allergies Home Medications Medication Instructions Recorded Confirmed Type amLODIPine [Norvasc] 10 mg PO DAILY 06/17/18 10/19/19 History Apixaban [Eliquis] 5 mg PO BID 10/19/19 10/19/19 History Allergies Allergy/AdvReac Type Severity Reaction Status Date / Time No Known Allergies Allergy Verified 10/19/19 07:58 Physical Exam Vitals: Vital Signs Temp Pulse Pulse Resp BP BP Pulse Ox 10/19/19 09:14 98.6 F 89 18 93/65 96 10/19/19 08:00 18 10/19/19 07:00 98.9 F 99 18 93/54 94 L 10/19/19 05:54 96 16 122/71 96 10/19/19 05:23 95 10/19/19 05:20 99.3 F 10/19/19 04:43 100 16 137/67 92 L 10/19/19 03:56 102.7 F H 119 H 20 112/67 94 L Intake and Output 10/18/19 10/19/19 10/19/19 22:59 06:59 14:59 Other: Weight 81.647 kg Results 10/19/19 04:05 10/19/19 04:05 Cardiac Enzymes 10/19/19 Range/Units 04:05 AST 50 (17-59) U/L Coagulation 10/19/19 Range/Units 04:05 PT 10.8 (9.0-12.0) sec APTT 21.6 L (22.0-30.0) sec CBC 10/19/19 Range/Units 04:05 WBC 5.7 (3.8-10.6) k/uL RBC 4.31 (4.30-5.90) m/uL Hgb 13.2 (13.0-17.5) gm/dL Hct 38.9 L (39.0-53.0) % Plt Count 175 (150-450) k/uL Comprehensive Metabolic Panel 10/19/19 Range/Units 04:05 Sodium 137 (137-145) mmol/L Potassium 3.9 (3.5-5.1) mmol/L Chloride 108 H (98-107) mmol/L Carbon Dioxide 18 L (22-30) mmol/L BUN 21 H (9-20) mg/dL Creatinine 1.00 (0.66-1.25) mg/dL Glucose 93 (74-99) mg/dL Calcium 9.2 (8.4-10.2) mg/dL AST 50 (17-59) U/L ALT 23 (4-49) U/L Alkaline Phosphatase 58 (38-126) U/L Total Protein 6.4 (6.3-8.2) g/dL Albumin 3.6 (3.5-5.0) g/dL Current Medications Generic Name Dose Route Start Last Admin Trade Name Freq PRN Reason Stop Dose Admin Acetaminophen 650 mg 10/19/19 05:11 Tylenol Tab PO Q6HR PRN Mild Pain or Fever > 100.5 Amlodipine Besylate 10 mg 10/19/19 09:00 10/19/19 08:57 Norvasc PO Not Given DAILY LEILA Apixaban 5 mg 10/19/19 09:00 Eliquis PO BID LEILA Sodium Chloride 1,000 mls @ 150 mls/hr 10/19/19 06:15 10/19/19 08:36 Saline 0.9% IV 150 mls/hr .Q6H40M LEILA Administration Gentamicin Sulfate 140 mg/ 103.5 mls @ 100.976 mls/hr 10/19/19 08:00 10/19/19 08:58 Sodium Chloride IVPB 10/19/19 11:00 100.976 mls/hr Q12H ELILA Administration Ceftriaxone Sodium 1 gm/ 50 mls @ 100 mls/hr 10/19/19 09:00 Sodium Chloride IVPB Q24HR LEILA Gentamicin Sulfate 240 mg/ 106 mls @ 106 mls/hr 10/19/19 10:00 Sodium Chloride IVPB 10/19/19 10:59 ONCE ONE Gentamicin Sulfate 380 mg/ 109.5 mls @ 109.5 mls/hr 10/20/19 09:00 Sodium Chloride IVPB Q24H [facility] Ibuprofen 400 mg 10/19/19 05:11 Motrin PO Q6HR PRN Mild Pain or Fever > 100.5 Naloxone HCl 0.2 mg 10/19/19 05:11 Narcan IV Q2M PRN Opioid Reversal Intake and Output 10/18/19 10/19/19 10/19/19 22:59 06:59 14:59 Other: Weight 81.647 kg 10/19/19 04:05 10/19/19 04:05
--- NOTE | 2019-10-19 12:31 | ECHOF ---
Referral Reason:cp MEASUREMENTS -------- HEIGHT: 180.3 cm WEIGHT: 81.6 kg BP: 93/65 RVIDd: 2.4 cm (< 3.3) IVSd: 1.1 cm (0.6 - 1.1) LVIDd: 4.3 cm (3.9 - 5.3) LVPWd: 1.3 cm (0.6 - 1.1) IVSs: 1.8 cm LVIDs: 2.2 cm LVPWs: 2.2 cm LAESV Index (A-L): 23.48 ml/m Ao Diam: 3.2 cm (2.0 - 3.7) AV Cusp: 2.2 cm (1.5 - 2.6) LA Diam: 3.5 cm (2.7 - 3.8) MV EXCURSION: 15.965 mm (> 18.000) MV EF SLOPE: 83 mm/s (70 - 150) EPSS: 0.3 cm MV E Karri: 0.98 m/s MV DecT: 158 ms MV A Karri: 0.76 m/s MV E/A Ratio: 1.29 AR PHT: 770 ms RAP: 15.00 mmHg RVSP: 46.04 mmHg FINDINGS -------- Sinus rhythm. This was a technically adequate study. The left ventricular size is normal. There is mild concentric left ventricular hypertrophy. Overa ll left ventricular systolic function is normal with, an EF between 55 - 60 %. The diastolic fillin g pattern is normal for the age of the patient 9.32. The right ventricle is normal in size. The left atrial size is normal. Normal LA size by volume 22+/-6 ml/m2. The right atrial size is normal. The aortic valve is trileaflet and appears structurally normal. The mitral valve is normal. There is trace mitral regurgitation. Mild tricuspid regurgitation present. There is mild pulmonary hypertension. The right ventricular systolic pressure, as measured by Doppler, is 46.04mmHg. There is no pulmonic regurgitation present. The aortic root size is normal. The inferior vena cava is mildly dilated. There is no pericardial effusion. CONCLUSIONS -------- 1. Sinus rhythm. 2. This was a technically adequate study. 3. The left ventricular size is normal. 4. There is mild concentric left ventricular hypertrophy. 5. Overall left ventricular systolic function is normal with, an EF between 55 - 60 %. 6. The diastolic filling pattern is normal for the age of the patient 9.32 7. The right ventricle is normal in size. 8. The left atrial size is normal. 9. Normal LA size by volume 22+/-6 ml/m2. 10. The right atrial size is normal. 11. The aortic valve is trileaflet and appears structurally normal. 12. The mitral valve is normal. 13. There is trace mitral regurgitation. 14. Mild tricuspid regurgitation present. 15. There is mild pulmonary hypertension. 16. The right ventricular systolic pressure, as measured by Doppler, is 46.04mmHg. 17. There is no pulmonic regurgitation present. 18. The aortic root size is normal. 19. The inferior vena cava is mildly dilated. 20. There is no pericardial effusion. [employer]MA[employer] SUPERVISOR: Poly Mosquera RDCS
--- NOTE | 2019-10-19 15:56 | P.PN ---
Progress Note - Text Progress Note Date: 10/19/19 Patient was seen. Patient is admitted for fever/chills, T-max of 104 Fahrenheit at home, confusion with labored breathing and prostatitis/UTI. Vitals upon presentation revealed a temperature of 102.7, pulse of 119, BP 112/67, respiratory rate 20, and SpO2 94% on room air. EKG as reviewed by me revealed Afib @ 109 bpm with prolonged QTc of 522. Laboratory evaluation revealed a CBC count of 5.7 (down from 12.8), hemoglobin 13.2, platelets 175, UA consistent with UTI, lactic acid 3.0 (up from 1.2), sodium 137, potassium 3.9, CO2 18, BUN 21, and creatinine 1.0. The patient received 1 L normal saline bolus, along with IV antibiotics ceftriaxone and Levaquin and was admitted to the medicine service for further management. Patient was seen around 3:30 PM. Patient continues to report similar symptoms as on admission. His is at bedside. Patient is currently sinus with heart rate in the 80s. Most recent BP 99/55. Patient appears sluggish but in no acute distress. Severe sepsis secondary to acute prostatitis Atrial fibrillation History of PE History of hypertension Elevated total bilirubin Urinalysis positive for large leukocyte esterase. Influenza negative. Patient afebrile with no leukocytosis. Patient is currently on Rocephin and gentamicin IV. Blood cultures positive for gram-negative bacilli as discussed with RN. Infectious disease will be consulted. We will follow final urine and blood cultures. Continue telemetry monitoring. Patient is currently sinus rate controlled with heart rate in the 80s. Eliquis has been started for anticoagulation and for his history of PE. Cardiology has been consulted and recommended echocardiogram. Patient will be restarted on Eliquis for treatment of PE. We will hold all antihypertensive medication to to hypotensive nature of this patient. Elevated total bilirubin 1.5 is likely related to sepsis. There are plans to repeat CMP tomorrow morning.
[2019-10-19] MEDS ORDERED: GENTAMICIN 100 MG in SODIUM CHLORIDE 0.9% 100 ML IVPB SCH (17:15)
--- NOTE | 2019-10-19 17:26 | XR ---
EXAMINATION: XR chest 1V portable DATE AND TIME: 10/19/2019 5:17 PM CLINICAL INDICATION: PHH; SOB TECHNIQUE: AP upright portable COMPARISON: 10/18/2019 7:01 PM FINDINGS: The lungs show interval development of a reticular pattern of increased density bilaterally reaching the periphery as septal lines, associated with mild silhouetting of the pulmonary vasculature arboriz ation bilaterally. There is no major atelectasis or focal consolidation. The pleural spaces are negative. The cardiac silhouette is mild-moderately enlarged. The remainder of the mediastinal silhouette is unremarkable. The skeletal structures and soft tissues are negative for acute findings. IMPRESSION: Interval development of mild interstitial phase pulmonary edema.
[2019-10-19] MEDS: IBUPROFEN 400 MG TAB PO PRN (17:28)
[2019-10-19] MEDS: ACETAMINOPHEN TAB 325 MG TAB PO PRN ×2 (17:28→22:28)
[2019-10-19] MEDS ORDERED: ASCORBIC ACID INJ 1,500 MG in SODIUM CHLORIDE 0.9% 100 ML IVPB SCH (18:00)
[2019-10-19] MEDS: CEFEPIME 2 GM in SODIUM CHLORIDE 0.9% 100 ML IVPB SCH (18:07)
[2019-10-19] MEDS ORDERED: FUROSEMIDE 10 MG/ML 4 ML VIAL IV STA (18:25)
[2019-10-20] MEDS: IBUPROFEN 400 MG TAB PO PRN ×2 (00:31→19:11)
[2019-10-20] MEDS: ACETAMINOPHEN TAB 325 MG TAB PO PRN (05:37)
[2019-10-20] MEDS: CEFEPIME 2 GM in SODIUM CHLORIDE 0.9% 100 ML IVPB SCH ×2 (05:39→18:14)
--- NOTE | 2019-10-20 08:04 | P.CONS ---
History of Present Illness - Reason for Consult Consult date: 10/19/19 sepsis Requesting physician: Anastasia Moreno - Chief Complaint fever x 2 days - History of Present Illness Patient is a 79-year male who has been brought into the ER at [facility] for evaluation of fever apparently the patient did have prostate biopsy done earlier this week and the patient subsequently developed urinary tract infection patient was discharged home on oral Cipro patient is now being brought back to the ER by the with concern for the patient having a fever that is not responding to the oral Cipro patient has been complaining of chills and rigors patient denies having any headache no chest pain shortness of breath or cough no nausea no vomiting no abdominal pain and no diarrhea on arrival to the ER patient did have a temperature of 102.7 F patient was tachycardic white count was not significantly elevated urine has been positive with her large leukocyte esterase 68 WBC influenza PCR was negative patient has been diagnosed with urinary tract infection he was started on Rocephin subsequently the blood culture done on the fourth coming back positive with gram-negative bacilli the patient was started on gentamicin infectious disease was consulted for further recommendation regarding antibiotic therapy. Review of Systems Positive point has been mentioned in HPI rest of the systems are negative Past Medical History Past Medical History: Hypertension, Prostate Disorder, Pulmonary Embolus (PE) Additional Past Medical History / Comment(s): PE to right lung History of Any Multi-Drug Resistant Organisms: None Reported Past Surgical History: No Surgical Hx Reported Additional Past Surgical History / Comment(s): prostate biopsy Past Anesthesia/Blood Transfusion Reactions: No Reported Reaction Past Psychological History: No Psychological Hx Reported Smoking Status: Never smoker Past Alcohol Use History: Occasional Past Drug Use History: None Reported - Past Family History Brother(s) Family Medical History: Coronary Artery Disease (CAD), Deep Vein Thrombosis (DVT), Pulmonary Embolus Father Family Medical History: Coronary Artery Disease (CAD), CVA/TIA, Deep Vein Thrombosis (DVT) Medications and Allergies Home Medications Medication Instructions Recorded Confirmed Type amLODIPine [Norvasc] 10 mg PO DAILY 06/17/18 10/19/19 History Apixaban [Eliquis] 5 mg PO BID 10/19/19 10/19/19 History Allergies Allergy/AdvReac Type Severity Reaction Status Date / Time No Known Allergies Allergy Verified 10/19/19 07:58 Physical Exam Vitals: Vital Signs Temp Pulse Pulse Resp BP BP Pulse Ox 10/19/19 09:14 98.6 F 89 18 93/65 96 10/19/19 08:00 18 10/19/19 07:00 98.9 F 99 18 93/54 94 L 10/19/19 05:54 96 16 122/71 96 10/19/19 05:23 95 10/19/19 05:20 99.3 F 10/19/19 04:43 100 16 137/67 92 L 10/19/19 03:56 102.7 F H 119 H 20 112/67 94 L Intake and Output 10/18/19 10/19/19 10/19/19 22:59 06:59 14:59 Other: Weight 81.647 kg GENERAL DESCRIPTION: Elderly male lying in bed, no distress. No tachypnea or accessory muscle of respiration use. HEENT: Shows Pallor , no scleral icterus. Oral mucous membrane is dry. NECK: Trachea central, no thyromegaly. LUNGS: Unlabored breathing. Clear to auscultation anteriorly. No wheeze or crackle. HEART: S1, S2, regular rate and rhythm. ABDOMEN: Soft, no tenderness , guarding or rigidity EXTREMITIES: No edema of feet. SKIN: No rash, no masses palpable. NEUROLOGICAL: The patient is awake, alert, oriented x3, mood and affect normal. Results CBC & Chem 7: 10/19/19 04:05 10/19/19 04:05 Labs: Abnormal Lab Results - Last 24 Hours (Table) 10/19/19 10/19/19 10/19/19 Range/Units 04:05 04:05 04:05 Hct 38.9 L (39.0-53.0) % Lymphocytes # 0.5 L (1.0-4.8) k/uL APTT 21.6 L (22.0-30.0) sec Chloride 108 H (98-107) mmol/L Carbon Dioxide 18 L (22-30) mmol/L BUN 21 H (9-20) mg/dL Plasma Lactic Acid Lawrence (0.7-2.0) mmol/L Total Bilirubin 1.5 H (0.2-1.3) mg/dL Urine Protein (Negative) Urine Blood (Negative) Ur Leukocyte Esterase (Negative) Urine RBC (0-5) /hpf Urine WBC (0-5) /hpf Urine Mucus (None) /hpf 10/19/19 10/19/19 Range/Units 04:05 04:55 Hct (39.0-53.0) % Lymphocytes # (1.0-4.8) k/uL APTT (22.0-30.0) sec Chloride (98-107) mmol/L Carbon Dioxide (22-30) mmol/L BUN (9-20) mg/dL Plasma Lactic Acid Lawrence 3.0 H* (0.7-2.0) mmol/L Total Bilirubin (0.2-1.3) mg/dL Urine Protein Trace H (Negative) Urine Blood Moderate H (Negative) Ur Leukocyte Esterase Large H (Negative) Urine RBC 108 H (0-5) /hpf Urine WBC 68 H (0-5) /hpf Urine Mucus Rare H (None) /hpf Assessment and Plan Assessment: patient presented to the hospital with sepsis in this patient who did have a fever tachycardia source is urinary tract infection and possible prostatitis in this patient who recently did have prostate biopsy subsequent developing UTI at that did not respond to oral Cipro with concern for possible deep infection from resistant gram-negative bacteria. (1) Postoperative infection Current Visit: Yes Status: Acute Code(s): T81.40XA - INFECTION FOLLOWING A PROCEDURE, UNSPECIFIED, INIT SNOMED Code(s): 74139685 (2) Sepsis Current Visit: Yes Status: Acute Code(s): A41.9 - SEPSIS, UNSPECIFIED ORGANISM SNOMED Code(s): 52359299 (3) UTI (urinary tract infection) Current Visit: Yes Status: Acute Code(s): N39.0 - URINARY TRACT INFECTION, SITE NOT SPECIFIED SNOMED Code(s): 20723388 Plan: 1-discontinue Rocephin and gentamicin 2- start the patient cefepime 2 g every 12 hours 3-we will check CT of the pelvis to make sure no evidence of any abscess in the prostate bed 4-IV fluids We will follow on clinical condition and cultures to further adjust medication if needed Thank you for this consultation we will follow the patient along with you Time with Patient: Greater than 30
[2019-10-20] MEDS: APIXABAN 5 MG TAB PO SCH ×2 (08:24→20:29)
[2019-10-20] MEDS ORDERED: GENTAMICIN 380 MG in SODIUM CHLORIDE 0.9% 100 ML IVPB SCH ×4 (09:00)
[2019-10-20 09:29] LABS: Basophils % (A) 0 %; Eosinophils # (A) 0.1 k/uL (0-0.7); Eosinophils % (A) 1 %; HCT 36.2 % (39.0-53.0); HGB 11.9 gm/dL (13.0-17.5); Lymphocytes # (A) 0.5 k/uL (1.0-4.8); Lymphocytes % (A) 4 %; Mean Platelet Volume 7.7; Monocytes # (A) 0.5 k/uL (0-1.0); Monocytes % (A) 4 %; Neutrophils # (A) 11.8 k/uL (1.3-7.7); Neutrophils % (A) 91 %; Platelet Count 175 k/uL (150-450); RBC 3.98 m/uL (4.30-5.90); RDW 13.4 % (11.5-15.5)
[2019-10-20 09:46] LABS: Calcium 9.2 mg/dL (8.4-10.2); Potassium 3.5 mmol/L (3.5-5.1)
--- NOTE | 2019-10-20 12:37 | P.PN ---
Subjective HISTORY OF PRESENTING ILLNESS This is a pleasant 79-year-old male past medical history significant for PE and DVT maintained on long-term anticoagulation and hypertension. He denies prior history of coronary artery disease and does not follow in the office with a spiritual counselor. Telemetry tracings reviewed and he continues to maintain sinus mechanism. No chest pain, shortness of breath, dizziness or palpitations. Blood pressure 116/65 heart rate 78 afebrile and maintaining oxygen saturation on nasal cannula. Chest x-ray obtained last evening revealed development of mild interstitial phase pulmonary edema he was given one dose of IV Lasix. Laboratory data reviewed, WBC 13, hemoglobin 11.9, platelets 175, sodium 136, potassium 3.5, creatinine 1.13. Amlodipine has been discontinued secondary to hypotension. Echocardiogram revealed preserved LV systolic function with ejection fraction 55-60% and normal diastolic filling pattern. PHYSICAL EXAMINATION CONSTITUTIONAL: No apparent distress. HEENT: Head is normocephalic. Pupils are equal, round. Sclerae anicteric. Mucous membranes of the mouth are moist. No JVD. No carotid bruit. CHEST EXAMINATION: Lungs are clear to auscultation. No chest wall tenderness is noted on palpation or with deep breathing. HEART EXAMINATION: Regular rate and rhythm. S1, S2 heard. No murmurs, gallops or rub. EXTREMITIES: 2+ peripheral pulses, no lower extremity edema and no calf tenderness. ASSESSMENT Paroxysmal atrial fibrillation, has converted to sinus. New onset. 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 Clinically stable from a cardiac perspective. We will continue to follow as needed, follow-up in the office with Dr. Cantu upon discharge. Nurse Practitioner note has been reviewed, I agree with a documented findings and plan of care. Patient was seen and examined. Objective - Vital Signs Vital signs: Vital Signs Temp 98.5 F 10/20/19 05:49 Pulse 72 10/20/19 08:00 Resp 20 10/20/19 05:49 BP 116/65 10/20/19 05:49 Pulse Ox 97 10/20/19 05:49 Intake & Output 10/19/19 10/20/19 10/20/19 18:59 06:59 18:59 Intake Total 1080 Output Total 1100 Balance 1080 -1100 Weight 86.9 kg Intake: Oral 1080 Output: Urine 1100 Other: Voiding Method Urinal Urinal Urinal # Voids 1 2 - Labs CBC & Chem 7: 10/20/19 08:48 10/20/19 08:48 Labs: Abnormal Lab Results - Last 24 Hours (Table) 10/20/19 10/20/19 Range/Units 08:48 08:48 WBC 13.0 H (3.8-10.6) k/uL RBC 3.98 L (4.30-5.90) m/uL Hgb 11.9 L (13.0-17.5) gm/dL Hct 36.2 L (39.0-53.0) % Neutrophils # 11.8 H (1.3-7.7) k/uL Lymphocytes # 0.5 L (1.0-4.8) k/uL Sodium 136 L (137-145) mmol/L Glucose 111 H (74-99) mg/dL Microbiology - Last 24 Hours (Table) 10/19/19 04:05 Blood Culture - Preliminary Blood No Growth after 24 hours
--- NOTE | 2019-10-20 15:50 | P.PN ---
Subjective Progress Note Date: 10/20/19 Principal diagnosis: UTI sepsis Patient was seen and examined. No acute events overnight. Yesterday, reports from nursing that patient had some difficulty breathing. Stat chest x-ray was ordered which showed some pulmonary edema. IVF was decreased as a result. Patient reports considerable improvement in his breathing since yesterday. Patient states that he generally feels well. is at bedside with multiple questions which were answered. He denies any chest pain, shortness breath or palpitations. No nausea or vomiting. No fever or chills. Objective - Vital Signs Vital signs: Vital Signs Temp 98.5 F 10/20/19 05:49 Pulse 72 10/20/19 08:00 Resp 20 10/20/19 05:49 BP 116/65 10/20/19 05:49 Pulse Ox 97 10/20/19 05:49 Intake & Output 10/19/19 10/20/19 10/20/19 18:59 06:59 18:59 Intake Total 1080 Output Total 1100 Balance 1080 -1100 Weight 86.9 kg Intake: Oral 1080 Output: Urine 1100 Other: Voiding Method Urinal Urinal Urinal # Voids 1 2 - Exam General: [non toxic], [no distress], [appears at stated age] Derm: [warm], [dry] Head: [atraumatic], [normocephalic], [symmetric] Eyes: [EOMI], [no lid lag], [anicteric sclera] Mouth: [no lip lesion], [mucus membranes moist] Cardiovascular: [S1S2 reg], [no murmur], [positive DP pulse bilateral], Lungs: [Decreased breath sounds bilateral], [no rhonchi, no rales] , [no accessory muscle use] Abdominal: [soft], [ nontender to palpation], [no guarding], [no appreciable organomegaly] Ext: [no gross muscle atrophy], [no edema], [no contractures] Neuro: [no focal neuro deficits] Psych: [Alert], [oriented], [appropriate affect] - Labs CBC & Chem 7: 10/20/19 08:48 10/20/19 08:48 Labs: Abnormal Lab Results - Last 24 Hours (Table) 10/20/19 10/20/19 Range/Units 08:48 08:48 WBC 13.0 H (3.8-10.6) k/uL RBC 3.98 L (4.30-5.90) m/uL Hgb 11.9 L (13.0-17.5) gm/dL Hct 36.2 L (39.0-53.0) % Neutrophils # 11.8 H (1.3-7.7) k/uL Lymphocytes # 0.5 L (1.0-4.8) k/uL Sodium 136 L (137-145) mmol/L Glucose 111 H (74-99) mg/dL Microbiology - Last 24 Hours (Table) 10/19/19 04:05 Blood Culture - Preliminary Blood No Growth after 24 hours Assessment and Plan Assessment: Severe sepsis secondary to acute prostatitis Pulmonary edema Atrial fibrillation History of PE History of hypertension Elevated total bilirubin Urinalysis positive for large leukocyte esterase. Influenza negative. Patient low-grade fever of 99 Fahrenheit overnight with leukocytosis of 13. Patient is currently on cefepime and gentamicin IV. Blood cultures positive for gram- negative bacilli E. coli as discussed with RN. Infectious disease is on board. We will follow final urine and blood cultures. Continue telemetry monitoring. Likely from infuse IVF. Patient is saturating well on 2 L nasal cannula. One dose of Lasix given overnight. Plans to decrease IVF and discontinue when appropriate. Patient is currently sinus rate controlled with heart rate in the 80s. Echocardiogram shows EF 55-60% with mild concentric LVH. Eliquis has been started for anticoagulation and for his history of PE. Cardiology has been cons ulted and is following the patient. Patient will be restarted on Eliquis for treatment of PE. We will hold all antihypertensive medication to to hypotensive nature of this patient. Elevated total bilirubin 1.5 is likely related to sepsis. There are plans to repeat CMP tomorrow morning. [Patient admitted for sepsis and bacteremia from acute prostatitis. Plans to repeat blood cultures. Continue IV antibiotics. Patient is pending clinical improvement. Likely DC in 2-3 days.]
--- NOTE | 2019-10-20 16:08 | CT ---
EXAMINATION TYPE: CT abdomen pelvis wo con DATE OF EXAM: 10/20/2019 COMPARISON: None INDICATION: sepsis , recent prostate biopsy ?abscess DLP: 617.7 mGycm, Automated exposure control for dose reduction was used. CONTRAST: 0 mL of Isovue 300. Study performed without Oral Contrast TECHNIQUE: Axial images were obtained from above the diaphragm to the pubic rami in the axial plane a t 5 mm thick sections. Reconstructed images are reviewed on the computer in the coronal plane. FINDINGS: Limited CT sections are obtained the lung bases. There is a small right pleural effusion. Some mild atelectasis is present.. Small hiatal hernia is present. CT ABDOMEN: Liver: Normal Spleen: Normal Pancreas: Mildly atrophic. Adrenal glands: The adrenal glands are normal. Gallbladder: Normal Kidneys: No masses are evident. No hydronephrosis is present. No cysts are present. Study is witho ut intravenous contrast. No renal or ureteral stones are evident. Aorta: Vascular calcification is within the aorta. Inferior vena cava: Normal. CT PELVIS: Fat containing inguinal hernias are within the inguinal regions. Loops of bowel within the abdomen and pelvis are normal. Study is without oral contrast limiting bowel evaluation. Appendix: Not visualized Urinary bladder: Normal. Genitourinary structures: Prostate is very prominent. This appears homogenous. Some peripheral calcif ications are present. No suspicious abscess formation within or adjacent to the prostate is evident. Osseous structures: No suspicious lytic or sclerotic lesions. IMPRESSIONS: 1. Marked prostate hypertrophy. No suspicious abscess formation in are around the prostate is eviden t. 2. No suspicious collections within the pelvis or elsewhere within the abdomen are evident.
[2019-10-20] MEDS: SODIUM CHLORIDE 0.9% 1,000 ML IV SCH (19:13)
--- NOTE | 2019-10-20 19:15 | PN ---
PROGRESS NOTE DATE OF SERVICE: 10/20/2019 REASON FOR FOLLOWUP: E coli bacteremia, urinary source. INTERVAL HISTORY: The patient is currently afebrile. The patient has been breathing comfortably. The patient denies having any chest pain or shortness of breath or cough. No abdominal pain and no diarrhea. No further hematuria. PHYSICAL EXAMINATION: Blood pressure is 116/65 with a pulse of 78, temperature 98.5. He is 97% on 2 L nasal cannula. General description is an elderly male lying in bed in no distress. RESPIRATORY SYSTEM: Unlabored breathing. Clear to auscultation anteriorly. HEART: S1, S2. Regular rate and rhythm. ABDOMEN: Soft. No tenderness. EXTREMITIES: No edema of the feet. LABS/IMAGING: Hemoglobin 11.9, white count of 13, BUN of 16, creatinine 1.13. Blood culture repeat has been negative. Blood culture from 10/17 has been not identified yet. CT of the pelvic area did not show any prostate bed abscess. DIAGNOSTIC IMPRESSION AND PLAN: Patient with Escherichia coli bacteremia. Source is urinary in this patient who just had a recent prostate biopsy. CT did not show any evidence of prostate bed abscess or deep collection. We will keep the patient on cefepime. Gentamicin has been by admitting team and may be harmful for him that was discontinued yesterday and should be discontinued. MMODL / IJN: [id number] /
[2019-10-20 20:47] LABS: Calcium 9.1 mg/dL (8.4-10.2); Potassium 3.5 mmol/L (3.5-5.1); Total Bilirubin 0.7 mg/dL (0.2-1.3); Total Protein 5.7 g/dL (6.3-8.2)
[2019-10-21] MEDS: CEFEPIME 2 GM in SODIUM CHLORIDE 0.9% 100 ML IVPB SCH (06:41)
[2019-10-21 06:42] LABS: Basophils % (A) 0 %; Eosinophils # (A) 0.2 k/uL (0-0.7); Eosinophils % (A) 2 %; HCT 36.2 % (39.0-53.0); HGB 12.1 gm/dL (13.0-17.5); Lymphocytes # (A) 0.8 k/uL (1.0-4.8); Lymphocytes % (A) 9 %; MCH 30.1 pg (25.0-35.0); MCHC 33.5 g/dL (31.0-37.0); MCV 89.7 fL (80.0-100.0); Mean Platelet Volume 7.6; Monocytes # (A) 0.6 k/uL (0-1.0); Monocytes % (A) 6 %; Neutrophils # (A) 7.8 k/uL (1.3-7.7); Neutrophils % (A) 80 %; Platelet Count 168 k/uL (150-450); RBC 4.03 m/uL (4.30-5.90); WBC 9.7 k/uL (3.8-10.6)
[2019-10-21 06:59] LABS: African American GFR (CKD) >90 (>60 ml/min/1.73 sqM); Anion Gap 6 mmol/L; Blood Urea Nitrogen 12 mg/dL (9-20); Calcium 9.4 mg/dL (8.4-10.2); Carbon Dioxide 25 mmol/L (22-30); Chloride 105 mmol/L (98-107); Glucose 94 mg/dL (74-99); Non-African American GFR(CKD) 79 (>60 ml/min/1.73 sqM); Potassium 3.4 mmol/L (3.5-5.1); Sodium 136 mmol/L (137-145)
[2019-10-21] MEDS ORDERED: Potassium Replacement Protocol 1 EACH MISC MISCELLANE PRN (08:26)
[2019-10-21] MEDS: POTASSIUM CHLORIDE ER 20 MEQ TAB.ER PO SCH ×2 (09:46→12:58)
[2019-10-21] MEDS: APIXABAN 5 MG TAB PO SCH ×2 (09:46→21:07)
--- NOTE | 2019-10-21 11:30 | P.PN ---
Subjective Progress Note Date: 10/21/19 Principal diagnosis: UTI sepsis Patient was seen and examined. No acute events overnight. was concerned last night due to worsening fevers and confusion and concerns with nursing checking vitals frequently. Patient was moved to selective care subsequently. Vitals were monitored every 2 hours. His mentation has improved this morning. He denies any chest pain, shortness breath or palpitations. No nausea or vomiting. No fever or chills. Objective - Vital Signs Vital signs: Vital Signs Temp 98.5 F 10/21/19 10:00 Pulse 79 10/21/19 10:00 Resp 18 10/21/19 10:00 BP 146/94 10/21/19 10:00 Pulse Ox 94 L 10/21/19 10:00 Intake & Output 10/20/19 10/21/19 10/21/19 18:59 06:59 18:59 Intake Total 180 Output Total 600 1450 2200 Balance -600 -1450 -2019 Weight 86.5 kg Intake: Oral 180 Output: Urine 600 1450 2200 Other: Voiding Method Urinal Urinal # Voids 3 0 # Bowel Movements 0 0 - Exam General: [non toxic], [no distress], [appears at stated age] Derm: [warm], [dry] Head: [atraumatic], [normocephalic], [symmetric] Eyes: [EOMI], [no lid lag], [anicteric sclera] Mouth: [no lip lesion], [mucus membranes moist] Cardiovascular: [S1S2 reg], [no murmur], [positive DP pulse bilateral], Lungs: [Decreased breath sounds bilateral], [no rhonchi, no rales] , [no accessory muscle use] Abdominal: [soft], [ nontender to palpation], [no guarding], [no appreciable organomegaly] Ext: [no gross muscle atrophy], [no edema], [no contractures] Neuro: [no focal neuro deficits] Psych: [Alert], [oriented], [appropriate affect] - Labs CBC & Chem 7: 10/21/19 06:08 10/21/19 06:08 Labs: Abnormal Lab Results - Last 24 Hours (Table) 10/20/19 10/21/19 10/21/19 Range/Units 20:18 06:08 06:08 RBC 4.03 L (4.30-5.90) m/uL Hgb 12.1 L (13.0-17.5) gm/dL Hct 36.2 L (39.0-53.0) % Neutrophils # 7.8 H (1.3-7.7) k/uL Lymphocytes # 0.8 L (1.0-4.8) k/uL Sodium 132 L 136 L (137-145) mmol/L Potassium 3.4 L (3.5-5.1) mmol/L Carbon Dioxide 21 L (22-30) mmol/L Glucose 113 H (74-99) mg/dL Total Protein 5.7 L (6.3-8.2) g/dL Albumin 3.0 L (3.5-5.0) g/dL Microbiology - Last 24 Hours (Table) 10/19/19 04:05 Blood Culture - Preliminary Blood No Growth after 48 hours 10/19/19 18:12 Blood Culture - Preliminary Blood No Growth after 24 hours Assessment and Plan Assessment: Acute metabolic encephalopathy Severe sepsis secondary to acute prostatitis Hypokalemia Pulmonary edema Atrial fibrillation History of PE History of hypertension Likely due to the below concerns. Patient is waxing and waning. reports worsening memory loss over the recent months. There might be some concerns for dementia. This is likely worsened by his septic nature. Plans for frequent redirection. Private room. We will continue to monitor. Urinalysis positive for large leukocyte esterase. Influenza negative. Patient T-max 101.7 Fahrenheit yesterday 8 PM. Patient is currently on cefepime IV. Blood cultures positive for gram-negative bacilli E. coli pansensitive. Repeat blood cultures negative so far. Infectious disease is on board. We will follow final urine and blood cultures. Continue telemetry monitoring. Check blood pressure every 2 hours. Potassium 3.4. Plans to replace via protocol. Repeat BMP tomorrow morning. Likely from infuse IVF. Patient is saturating well on 2 L nasal cannula. One dose of Lasix given. DC IVF. Repeat chest x-ray today. Patient is currently sinus rate controlled with heart rate in the 80s. Echo cardiogram shows EF 55-60% with mild concentric LVH. Eliquis has been started for anticoagulation and for his history of PE. Cardiology has been consulted and is following the patient. Patient will be restarted on Eliquis for treatment of PE. We will hold all antihypertensive medication to to hypotensive nature of this patient. [Patient admitted for sepsis and bacteremia from acute prostatitis. Continue IV antibiotics. Patient is pending clinical improvement. Likely DC in 1-2 days.]
--- NOTE | 2019-10-21 12:04 | XR ---
EXAMINATION TYPE: XR chest 1V portable DATE OF EXAM: 10/21/2019 CLINICAL HISTORY: Difficulty breathing progress study. TECHNIQUE: Single AP portable upright view of the chest is obtained. COMPARISON: Chest x-ray from 2 days earlier and older studies FINDINGS: There is some chronic parenchymal change without new suspicious focal airspace opacity, pl eural effusion, or pneumothorax seen bilaterally. Improved central vascular congestion. 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 Osseous structures intact. IMPRESSION: Chronic changes and cardiomegaly with improving central vascular congestion. No new focal infiltrate.
[2019-10-21] MEDS: SODIUM CHLORIDE 0.9% 1,000 ML IV SCH (15:40)
[2019-10-21] MEDS: amLODIPine 10 MG TAB PO SCH (21:31)
[2019-10-22 06:10] LABS: Basophils % (A) 0 %; Eosinophils # (A) 0.1 k/uL (0-0.7); Eosinophils % (A) 2 %; HCT 38.2 % (39.0-53.0); HGB 12.5 gm/dL (13.0-17.5); Lymphocytes # (A) 1.1 k/uL (1.0-4.8); Lymphocytes % (A) 12 %; MCH 29.2 pg (25.0-35.0); MCHC 32.7 g/dL (31.0-37.0); MCV 89.2 fL (80.0-100.0); Mean Platelet Volume 7.7; Monocytes # (A) 0.6 k/uL (0-1.0); Monocytes % (A) 7 %; Neutrophils # (A) 6.4 k/uL (1.3-7.7); Neutrophils % (A) 75 %; Platelet Count 185 k/uL (150-450); RBC 4.29 m/uL (4.30-5.90); RDW 12.9 % (11.5-15.5); WBC 8.5 k/uL (3.8-10.6)
[2019-10-22 06:32] LABS: African American GFR (CKD) >90 (>60 ml/min/1.73 sqM); Anion Gap 7 mmol/L; Blood Urea Nitrogen 10 mg/dL (9-20); Calcium 9.7 mg/dL (8.4-10.2); Carbon Dioxide 27 mmol/L (22-30); Chloride 101 mmol/L (98-107); Glucose 107 mg/dL (74-99); Non-African American GFR(CKD) 84 (>60 ml/min/1.73 sqM); Potassium 3.7 mmol/L (3.5-5.1); Sodium 135 mmol/L (137-145)
--- NOTE | 2019-10-22 08:39 | PN ---
PROGRESS NOTE DATE OF SERVICE: 10/21/2019. REASON FOR FOLLOWUP: E coli bacteremia secondary to urinary source. INTERVAL HISTORY: The patient is currently afebrile. The last temperature last night of 101.7. No fever since then. The patient has been breathing comfortably. Denies any chest pain or shortness of breath or cough. No nausea, no vomiting. No abdominal pain. No diarrhea. Urinary symptoms have improved. PHYSICAL EXAMINATION: Blood pressure 155/90 with a pulse of 75. Temperature 99.1. He is 94% on room air. General description is an elderly male, lying in bed, in no distress. Respiratory system: Unlabored breathing. Clear to auscultation anteriorly. Heart S1, S2. Regular rate and rhythm. Abdomen soft, no tenderness. LABS: Hemoglobin is 12.1, white count 9.7, BUN of 12, creatinine 0.93. Initial blood culture finalized with E coli sensitive pathogen. Blood culture repeat has been negative. DIAGNOSTIC IMPRESSION AND PLAN: Patient with E coli bacteremia secondary to urinary source. This patient did have recent prostate biopsy. CT of the pelvis was negative for any abscess or hematoma in the prostate bed. The patient's antibiotic adjusted to Rocephin 2 g daily with a plan to finish therapy with oral antibiotics. Continue supportive care. MMODL / IJN: [id number] /
[2019-10-22] MEDS: APIXABAN 5 MG TAB PO SCH (08:49)
[2019-10-22 10:16] VITALS: BP 145/81
--- NOTE | 2019-10-22 11:38 | P.DS ---
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 The history supplemented by the at the bedside. The patient underwent a prostate biopsy for an elevated PSA on 10/16. On the evening of 10/17, he developed fever with shaking chills, with T-max of 104 at home. The reported that the patient also looks to have labored breathing and confusion, for which she had brought into the ED. The patient was noted to have a UTI, was prescribed ciprofloxacin, advised to take antipyretics and was discharged home. Upon returning to home, the patient continued to have fevers despite taking Tylenol and Motrin. The reports that she attempted to take his blood pressure several times but was unable to get a reading. She also noticed that his pulse was 120+, thereby she brought him back to the ED. He underwent an extensive evaluation in the emergency room. Vitals upon presentation revealed a temperature of 102.7, pulse of 119, BP 112/67, respiratory rate 20, and SpO2 94% on room air. EKG as reviewed by me revealed Afib @ 109 bpm with prolonged QTc of 522. Laboratory evaluation revealed a CBC count of 5.7 (down from 12.8), hemoglobin 13.2, platelets 175, UA consistent with UTI, lactic acid 3.0 (up from 1.2), sodium 137, potassium 3.9, CO2 18, BUN 21, and creatinine 1.0. The patient received 1 L normal saline bolus, along with IV antibiotics ceftriaxone and Levaquin and was admitted to the medicine service for further management. Patient initially met sepsis criteria with fever of 102.7 Fahrenheit, tachycardia, hypotension responding to fluid bolus and positive source of infection. His lactic acid was 3 and 1.2 on repeat after 4 hours. Urinalysis positive for large leukocyte esterase. Influenza was negative. Patient continued to spike fevers as high as 101.9 Fahrenheit. Patient was started on Rocephin and gentamicin IV. Blood cultures were positive for gram-negative bacilli and urine culture came back with E. coli pansensitive. Infectious disease was consulted and initially changed to Rocephin and gentamicin to cefepime, then back to Rocephin when sensitivities came back. Patient's mentation waxed and waned during the first 2 days of his admission but significantly improved at the time of discharge. He did have an episode of dyspnea for which chest x-ray was ordered and confirmed pulmonary edema. He was given 1 dose of Lasix which improved his symptoms significantly. Cardiology was consulted for his atrial fibrillation. Eliquis has been started for anticoagulation and for his history of PE and A. fib. Cardiology recommended echocardiogram which showed EF 55-60% with mild concentric LVH. CT abdomen and pelvis was obtained which was negative for abscess. Patient was seen and examined. No acute events overnight. Patient denies any abdominal pain. He denies any chest pain, shortness of breath or palpitations. No nausea or vomiting. No fever or chills. He does complain of decreased appetite but states that it could be due to taste alteration from the antibiotics. Nothing tastes good to him. General: [non toxic], [no distress], [appears at stated age] Derm: [warm], [dry] Head: [atraumatic], [normocephalic], [symmetric] Eyes: [EOMI], [no lid lag], [anicteric sclera] Mouth: [no lip lesion], [mucus membranes moist] Cardiovascular: [S1S2 reg], [no murmur], [positive DP pulse bilateral], Lungs: [Decreased breath sounds bilateral], [no rhonchi, no rales] , [no accessory muscle use] Abdominal: [soft], [ nontender to palpation], [no guarding], [no appreciable organomegaly] Ext: [no gross muscle atrophy], [no edema], [no contractures] Neuro: [no focal neuro deficits] Psych: [Alert], [oriented], [appropriate affect] Acute prostatitis and E. coli bacteremia Atrial fibrillation History of PE History of hypertension Resolved: Acute metabolic encephalopathy, hypokalemia, lactic acidosis, sepsis, pulmonary edema Patient's urine culture has come back positive for E. coli pansensitive. He has been hemodynamically stable and his last fever was 10/20/2019. Patient will be transitioned to levofloxacin by mouth to complete a total of 14 days. He will need to follow-up with his PCP for results of repeat blood cultures which are currently negative at 48 and 72 hours. Patient is currently rate controlled. He is on Eliquis for anticoagulation due to PE and history of A. fib. Plans on discharge home today. Will discuss with prior to discharge. This complex discharge took about 45 minutes to complete. Pertinent Studies: Echocardiogram, chest x-ray, CT abdomen and pelvis, blood cultures Patient Condition at Discharge: Stable Plan - Discharge Summary Discharge Rx Participant: No New Discharge Prescriptions: New Levofloxacin 750 mg PO DAILY 10 Days #10 tab Continue amLODIPine [Norvasc] 10 mg PO DAILY Apixaban [Eliquis] 5 mg PO BID Discharge Medication List amLODIPine [Norvasc] 10 mg PO DAILY 06/17/18 [History] Apixaban [Eliquis] 5 mg PO BID 10/19/19 [History] Levofloxacin 750 mg PO DAILY 10 Days #10 tab 10/22/19 [Rx] Follow up Appointment(s)/Referral(s): Jaden Pacheco DO [Primary Care Provider] - 1-2 days Jacob Cantu MD [STAFF PHYSICIAN] - 2 Weeks Activity/Diet/Wound Care/Special Instructions: Diet: Regular Follow-up with PCP within 3 days of discharge. Follow-up with your urologist within 1 week of discharge. Follow-up with cardiology within 1 week of discharge. Take all medications as advised. Come back to the ED or call 911 for worsening confusion, fevers greater than 101F, or low blood pressure Discharge Disposition: HOME SELF-CARE
[2019-10-22 12:03] VITALS: PULSE 69; RESP 18; TEMP 98.2
[2019-10-22] MEDS: amLODIPine 10 MG TAB PO SCH (12:09)
--- NOTE | 2019-10-25 14:16 | CDI ---
Documentation Clarification Form Date: 10/25/19 From: Adriane Sharp CCS Phone: If you have a question about this query, please contact Aylin Lindsey, Application Security Architect at [phone] between 8am and 5pm. Admit Date: 10/19/19 Discharge Date: 10/22/19 Patient Name: Miguel A Gamboa Visit Number: [id number] ATTENTION: The Clinical Documentation Specialists (CDI) and [facility] Coding Staff appreciate your assistance in clarifying documentation. Please respond to the clarification below the line at the bottom and electronically sign. The CDI & [facility] Coding staff will review the response and follow-up if needed. Please note: Queries are made part of the Legal Health Record. If you have any questions, please contact the author of this message via ITS. Dear Dr. Moreno, The patient presented with post operative infection and sepsis. Pulmonary edema is documented in PNs, DS. History/Risk Factors: AFIB, HHD, Sepsis Clinical Indicators: SOB Echo: The left ventricular size is normal.There is mild concentric left ventricular hypertrophy.Overall left ventricular systolic function is normal with, an EF between 55 - 60 %.The diastolic filling pattern is normal for the age of the patient 9.32. Valve disease and pulmonary hypertension Radiology findings: Interval development of mild interstitial phase pulmonary edema. Treatment: Lasix 40 mg IV once In your professional opinion, can you please clarify pulmonary edema? Acute pulmonary edema Chronic pulmonary edema Pulmonary edema due to heart disease Pulmonary edema due to heart failure ( please specify type and acuity) Other, please specify Unable to determine chronic pulmonary edema from afib MTDD
== END 2019-10-22 15:10 | disposition home or self-care (01) | DRG 862 ==
LOC: EC 03:49 → 6NMEDSUR 05:11 → 3SCARD 10-20 22:04
PROVIDERS: ADMIT Internal Medicine; ATTEND Internal Medicine
DX: T81.44XA Sepsis following a procedure, initial encounter (principal); A41.51 Sepsis due to Escherichia coli [E. coli]; R65.20 Severe sepsis without septic shock; G93.41 Metabolic encephalopathy; J81.1 Chronic pulmonary edema; N39.0 Urinary tract infection, site not specified; N41.0 Acute prostatitis; F03.90 Unspecified dementia, unspecified severity, without behavioral disturbance, psychotic disturbance, mood disturbance, and anxiety; I27.20 Pulmonary hypertension, unspecified; I11.9 Hypertensive heart disease without heart failure; I95.9 Hypotension, unspecified; I48.0 Paroxysmal atrial fibrillation; I44.0 Atrioventricular block, first degree; E87.6 Hypokalemia; Z79.899 Other long term (current) drug therapy; Z79.01 Long term (current) use of anticoagulants; Z98.890 Other specified postprocedural states; Z86.711 Personal history of pulmonary embolism; Z86.718 Personal history of other venous thrombosis and embolism; N42.9 Disorder of prostate, unspecified; Z82.49 Family history of ischemic heart disease and other diseases of the circulatory system; Z82.3 Family history of stroke; Z83.2 Family history of diseases of the blood and blood-forming organs and certain disorders involving the immune mechanism
CPT/HCPCS: 36415; 51798; 71045; 71046; 74176; 80048; 80053; 80170; 81001; 83605; 85025; 85610; 85730; 87040; 87077; 87086; 87186; 87502; 93005; 93306; 96361; 96365; 96375; 99284; 99291

== ENCOUNTER 2019-12-22 00:23 | Inpatient (IN) | payer MEDICARE, OTHER ==
[2019-12-22] MEDS ORDERED: SODIUM CHLORIDE 0.9% 1,000 ML IV STA (00:40)
--- NOTE | 2019-12-22 00:55 | ED ---
Neuro HPI - General Chief Complaint: Neuro Symptoms/Deficit Stated Complaint: LT arm weakness Time Seen by Provider: 12/22/19 00:29 Source: patient, RN notes reviewed, old records reviewed Mode of arrival: wheelchair Limitations: no limitations - History of Present Illness Is the patient presenting with stroke symptoms?: Yes Last Known Well Date: 12/20/19 -: days(s) (2) Initial Comments: This is a 79-year-old male DF for evaluation patient presents with 2 days of inability to control his left upper extremity patient has history of high blood pressure. Patient point of numbness in that upper extremity but he also was ordered day and a half ago. Patient denying any headaches. No trauma no fevers. Nursing travel history sick contacts takes no new medications no change in medication. Location: left arm History of same: No Place: home Severity: moderate Quality: weak Improves With: none Worsens With: none On Anticoagulants: Yes Context: sudden onset Associated Symptoms: denies other symptoms Treatments Prior to Arrival: none - Related Data Home Medications: Home Medications Medication Instructions Recorded Confirmed amLODIPine [Norvasc] 10 mg PO DAILY 06/17/18 12/22/19 Apixaban [Eliquis] 5 mg PO BID 10/19/19 12/22/19 Allergies/Adverse Reactions: Allergies Allergy/AdvReac Type Severity Reaction Status Date / Time No Known Allergies Allergy Verified 12/22/19 08:02 Review of Systems ROS Statement: Those systems with pertinent positive or pertinent negative responses have been documented in the HPI. ROS Other: All systems not noted in ROS Statement are negative. General Exam Limitations: no limitations General appearance: alert, in no apparent distress Head exam: Present: atraumatic, normocephalic, normal inspection Eye exam: Present: normal appearance, PERRL, EOMI. Absent: scleral icterus, conjunctival injection, periorbital swelling ENT exam: Present: normal exam, mucous membranes moist Neck exam: Present: normal inspection. Absent: tenderness, meningismus, lymphadenopathy Respiratory exam: Present: normal lung sounds bilaterally. Absent: respiratory distress, wheezes, rales, rhonchi, stridor Cardiovascular Exam: Present: regular rate, normal rhythm, normal heart sounds. Absent: systolic murmur, diastolic murmur, rubs, gallop, clicks GI/Abdominal exam: Present: soft, normal bowel sounds. Absent: distended, tenderness, guarding, rebound, rigid Extremities exam: Present: normal inspection, full ROM, normal capillary refill. Absent: tenderness, pedal edema, joint swelling, calf tenderness Back exam: Present: normal inspection Neurological exam: Present: alert, oriented X3, CN II-XII intact Psychiatric exam: Present: normal affect, normal mood Skin exam: Present: warm, dry, intact, normal color. Absent: rash Stroke MDM - Lab Data Result diagrams: 12/22/19 01:02 12/22/19 01:02 Lab Results 12/22/19 12/22/19 12/22/19 Range/Units 01:02 01:02 01:02 WBC 6.4 (3.8-10.6) k/uL RBC 4.59 (4.30-5.90) m/uL Hgb 13.4 (13.0-17.5) gm/dL Hct 41.0 (39.0-53.0) % MCV 89.4 (80.0-100.0) fL MCH 29.1 (25.0-35.0) pg MCHC 32.6 (31.0-37.0) g/dL RDW 13.5 (11.5-15.5) % Plt Count 234 (150-450) k/uL Neutrophils % 49 % Lymphocytes % 36 % Monocytes % 7 % Eosinophils % 4 % Basophils % 1 % Neutrophils # 3.2 (1.3-7.7) k/uL Lymphocytes # 2.3 (1.0-4.8) k/uL Monocytes # 0.4 (0-1.0) k/uL Eosinophils # 0.3 (0-0.7) k/uL Basophils # 0.1 (0-0.2) k/uL PT 9.8 (9.0-12.0) sec INR 0.9 (<1.2) APTT 22.8 (22.0-30.0) sec Sodium 137 (137-145) mmol/L Potassium 3.8 (3.5-5.1) mmol/L Chloride 106 (98-107) mmol/L Carbon Dioxide 25 (22-30) mmol/L Anion Gap 6 mmol/L BUN 16 (9-20) mg/dL Creatinine 0.98 (0.66-1.25) mg/dL Est GFR (CKD-EPI)AfAm 86 (>60 ml/min/1.73 sqM) Est GFR (CKD-EPI)NonAf 75 (>60 ml/min/1.73 sqM) Glucose 108 H (74-99) mg/dL Plasma Lactic Acid Lawrence (0.7-2.0) mmol/L Calcium 10.1 (8.4-10.2) mg/dL Phosphorus 4.1 (2.5-4.5) mg/dL Magnesium 2.2 (1.6-2.3) mg/dL Total Bilirubin 0.6 (0.2-1.3) mg/dL AST 20 (17-59) U/L ALT 12 (4-49) U/L Alkaline Phosphatase 72 (38-126) U/L Troponin I (0.000-0.034) ng/mL Total Protein 7.1 (6.3-8.2) g/dL Albumin 4.1 (3.5-5.0) g/dL Triglycerides (<150) mg/dL Cholesterol (<200) mg/dL LDL Cholesterol, Calc (0-99) mg/dL HDL Cholesterol (40-60) mg/dL Urine Color Urine Appearance (Clear) Urine pH (5.0-8.0) Ur Specific [place] (1.001-1.035) Urine Protein (Negative) Urine Glucose (UA) (Negative) Urine Ketones (Negative) Urine Blood (Negative) Urine Nitrite (Negative) Urine Bilirubin (Negative) Urine Urobilinogen (<2.0) mg/dL Ur Leukocyte Esterase (Negative) Coronavirus (PCR) (Not Detectd) 12/22/19 12/22/19 12/22/19 Range/Units 01:02 01:02 01:02 WBC (3.8-10.6) k/uL RBC (4.30-5.90) m/uL Hgb (13.0-17.5) gm/dL Hct (39.0-53.0) % MCV (80.0-100.0) fL MCH (25.0-35.0) pg MCHC (31.0-37.0) g/dL RDW (11.5-15.5) % Plt Count (150-450) k/uL Neutrophils % % Lymphocytes % % Monocytes % % Eosinophils % % Basophils % % Neutrophils # (1.3-7.7) k/uL Lymphocytes # (1.0-4.8) k/uL Monocytes # (0-1.0) k/uL Eosinophils # (0-0.7) k/uL Basophils # (0-0.2) k/uL PT (9.0-12.0) sec INR (<1.2) APTT (22.0-30.0) sec Sodium (137-145) mmol/L Potassium (3.5-5.1) mmol/L Chloride (98-107) mmol/L Carbon Dioxide (22-30) mmol/L Anion Gap mmol/L BUN (9-20) mg/dL Creatinine (0.66-1.25) mg/dL Est GFR (CKD-EPI)AfAm (>60 ml/min/1.73 sqM) Est GFR (CKD-EPI)NonAf (>60 ml/min/1.73 sqM) Glucose (74-99) mg/dL Plasma Lactic Acid Lawrence 1.0 (0.7-2.0) mmol/L Calcium (8.4-10.2) mg/dL Phosphorus (2.5-4.5) mg/dL Magnesium (1.6-2.3) mg/dL Total Bilirubin (0.2-1.3) mg/dL AST (17-59) U/L ALT (4-49) U/L Alkaline Phosphatase (38-126) U/L Troponin I <0.012 (0.000-0.034) ng/mL Total Protein (6.3-8.2) g/dL Albumin (3.5-5.0) g/dL Triglycerides 126 (<150) mg/dL Cholesterol 191 (<200) mg/dL LDL Cholesterol, Calc 119 H (0-99) mg/dL HDL Cholesterol 47 (40-60) mg/dL Urine Color Urine Appearance (Clear) Urine pH (5.0-8.0) Ur Specific [place] (1.001-1.035) Urine Protein (Negative) Urine Glucose (UA) (Negative) Urine Ketones (Negative) Urine Blood (Negative) Urine Nitrite (Negative) Urine Bilirubin (Negative) Urine Urobilinogen (<2.0) mg/dL Ur Leukocyte Esterase (Negative) Coronavirus (PCR) (Not Detectd) 05/08/20 05/08/20 Range/Units 02:34 02:34 WBC (3.8-10.6) k/uL RBC (4.30-5.90) m/uL Hgb (13.0-17.5) gm/dL Hct (39.0-53.0) % MCV (80.0-100.0) fL MCH (25.0-35.0) pg MCHC (31.0-37.0) g/dL RDW (11.5-15.5) % Plt Count (150-450) k/uL Neutrophils % % Lymphocytes % % Monocytes % % Eosinophils % % Basophils % % Neutrophils # (1.3-7.7) k/uL Lymphocytes # (1.0-4.8) k/uL Monocytes # (0-1.0) k/uL Eosinophils # (0-0.7) k/uL Basophils # (0-0.2) k/uL PT (9.0-12.0) sec INR (<1.2) APTT (22.0-30.0) sec Sodium (137-145) mmol/L Potassium (3.5-5.1) mmol/L Chloride (98-107) mmol/L Carbon Dioxide (22-30) mmol/L Anion Gap mmol/L BUN (9-20) mg/dL Creatinine (0.66-1.25) mg/dL Est GFR (CKD-EPI)AfAm (>60 ml/min/1.73 sqM) Est GFR (CKD-EPI)NonAf (>60 ml/min/1.73 sqM) Glucose (74-99) mg/dL Plasma Lactic Acid Lawrence (0.7-2.0) mmol/L Calcium (8.4-10.2) mg/dL Phosphorus (2.5-4.5) mg/dL Magnesium (1.6-2.3) mg/dL Total Bilirubin (0.2-1.3) mg/dL AST (17-59) U/L ALT (4-49) U/L Alkaline Phosphatase (38-126) U/L Troponin I (0.000-0.034) ng/mL Total Protein (6.3-8.2) g/dL Albumin (3.5-5.0) g/dL Triglycerides (<150) mg/dL Cholesterol (<200) mg/dL LDL Cholesterol, Calc (0-99) mg/dL HDL Cholesterol (40-60) mg/dL Urine Color Yellow Urine Appearance Clear (Clear) Urine pH 5.5 (5.0-8.0) Ur Specific [place] 1.015 (1.001-1.035) Urine Protein Negative (Negative) Urine Glucose (UA) Negative (Negative) Urine Ketones Negative (Negative) Urine Blood Negative (Negative) Urine Nitrite Negative (Negative) Urine Bilirubin Negative (Negative) Urine Urobilinogen <2.0 (<2.0) mg/dL Ur Leukocyte Esterase Negative (Negative) Coronavirus (PCR) Not Detected (Not Detectd) - NIH Stroke Scale 1a. Level of Consciousness: (0) alert 1b. LOC Questions: (0) answers correctly 1c. LOC Commands: (0) performs tasks correctly 2. Best Gaze: (0) normal 3. Visual: (0) no visual loss 4. Facial Palsy: (0) normal symmetrical movement 5a. Motor Arm Left: (2) some gravity effort 5b. Motor Arm Right: (0) no drift 6a. Motor Leg Left: (0) no drift 6b. Motor Leg Right: (0) no drift 7. Limb Ataxia: (1) present 1 limb 8. Sensory: (0) normal 9. Best Language: (0) no aphasia 10. Dysarthria: (0) normal 11. Extinction/Inattention: (0) no abnormality - Thrombolytic Inclusion/Exclusion Thrombolytic Exclusion Criteria: Symptom Onset > 4.5 Hours - Medical Decision Making 79 male DF for evaluation patient has a for evaluation of dizziness ataxia and inability control left upper extremity. Patient is concern for CVA stroke with possible posterior stroke. Patient given aspirin here in the ER will admit for neurology consult to further evaluation management - Radiology Data Radiology results: report reviewed (CT brain is negative for acute disease), image reviewed - EKG Data -: EKG Interpreted by Me (EKG shows sinus rhythm of 67, [place] 316, QRS 92, QTC 399) Past Medical History Past Medical History: Hypertension, Prostate Disorder, Pulmonary Embolus (PE) Additional Past Medical History / Comment(s): PE to right lung History of Any Multi-Drug Resistant Organisms: None Reported Past Surgical History: No Surgical Hx Reported Additional Past Surgical History / Comment(s): prostate biopsy Past Anesthesia/Blood Transfusion Reactions: No Reported Reaction Past Psychological History: No Psychological Hx Reported Smoking Status: Never smoker Past Alcohol Use History: Occasional Past Drug Use History: None Reported - Past Family History Brother(s) Family Medical History: Coronary Artery Disease (CAD), Deep Vein Thrombosis (D VT), Pulmonary Embolus Father Family Medical History: Coronary Artery Disease (CAD), CVA/TIA, Deep Vein Thrombosis (DVT) Course Vital Signs 12/22/19 00:29 Temperature 97.9 F Pulse Rate 71 Respiratory 20 Rate Blood Pressure 135/75 O2 Sat by Pulse 98 Oximetry Critical Care Time Critical Care Time: Yes Total Critical Care Time: 31 Disposition Clinical Impression: Apraxia, Cerebrovascular accident (CVA), Dizziness, Ataxia Narrative: LUE clumsiness Disposition: ADMITTED IP TO THIS HOSP Condition: Fair Is patient prescribed a controlled substance at d/c from ED?: No
[2019-12-22 01:09] LABS: Basophils # (A) 0.1 k/uL (0-0.2); Basophils % (A) 1 %; Eosinophils # (A) 0.3 k/uL (0-0.7); Eosinophils % (A) 4 %; HGB 13.4 gm/dL (13.0-17.5); Lymphocytes # (A) 2.3 k/uL (1.0-4.8); Lymphocytes % (A) 36 %; MCH 29.1 pg (25.0-35.0); MCHC 32.6 g/dL (31.0-37.0); MCV 89.4 fL (80.0-100.0); Mean Platelet Volume 7.1; Monocytes # (A) 0.4 k/uL (0-1.0); Monocytes % (A) 7 %; Neutrophils # (A) 3.2 k/uL (1.3-7.7); Neutrophils % (A) 49 %; Platelet Count 234 k/uL (150-450); RBC 4.59 m/uL (4.30-5.90); RDW 13.5 % (11.5-15.5); WBC 6.4 k/uL (3.8-10.6)
[2019-12-22 01:19] LABS: INR 0.9 (<1.2); Partial Thromboplastin Time 22.8 sec (22.0-30.0); Prothrombin Time 9.8 sec (9.0-12.0)
[2019-12-22 01:21] LABS: Albumin 4.1 g/dL (3.5-5.0); Calcium 10.1 mg/dL (8.4-10.2); Magnesium 2.2 mg/dL (1.6-2.3); Phosphorus 4.1 mg/dL (2.5-4.5); Potassium 3.8 mmol/L (3.5-5.1); Total Bilirubin 0.6 mg/dL (0.2-1.3); Total Protein 7.1 g/dL (6.3-8.2)
--- NOTE | 2019-12-22 01:32 | CT ---
EXAMINATION TYPE: CT brain wo con DATE OF EXAM: 12/22/2019 COMPARISON: None HISTORY: weakness CT DLP: 1162.4 mGycm Automated exposure control for dose reduction was used. There is cerebral cortical atrophy. There is no mass effect nor midline shift. There is no sign of in tracranial hemorrhage. Calvarium is intact. There is mild enlargement of the ventricles. There is hyp odensity in the posterior parietal lobe white matter. Calvarium is intact. Skull base is intact. Ther e is mild mucosal thickening in the posterior ethmoid air cells. IMPRESSION: Cerebral atrophy. Mild chronic small vessel ischemia. No acute intracranial abnormality.
--- NOTE | 2019-12-22 01:34 | XR ---
EXAMINATION TYPE: XR chest 2V DATE OF EXAM: 12/22/2019 COMPARISON: 10/21/2019 HISTORY: Short of breath TECHNIQUE: 2 views FINDINGS: Heart appears slightly enlarged. There is no heart failure. Lungs are clear of consolidatio n. There are no hilar masses. Bony thorax appears intact. IMPRESSION: No active cardiopulmonary disease. Mild cardiomegaly. No change.
[2019-12-22 02:41] LABS: Appearance,Urine Clear (Clear); Bilirubin,Urine Negative (Negative); Blood,Urine Negative (Negative); Color,Urine Yellow; Glucose,Urine (UA) Negative (Negative); Ketones,Urine Negative (Negative); Leukocyte Esterase,Urine Negative (Negative); Nitrite,Urine Negative (Negative); PH, Urine 5.5 (5.0-8.0); Protein,Urine Negative (Negative); Specific Gravity,Urine 1.015 (1.001-1.035); Urobilinogen,Urine <2.0 mg/dL (<2.0)
[2019-12-22] MEDS: SODIUM CHLORIDE 0.9% 1,000 ML IV SCH ×2 (03:29→14:54)
[2019-12-22] MEDS ORDERED: ASPIRIN 325 MG TAB PO STA (03:29)
[2019-12-22 04:43] VITALS: RESP 16
--- NOTE | 2019-12-22 04:49 | P.HPIM ---
History of Present Illness H&P Date: 12/22/19 The patient is a 79-year-old male with a PMH of PE/DVT and this is on Eliquis) hypertension, and BPH who presented to the ED with sudden onset of left arm ataxia. The patient reports that he was in his usual state of health until yesterday at about 2 PM when he noticed that his left arm felt strange. He feels as though he has lost coordination in the arm, and as though it is also somewhat weaker. During this time he also noticed that his gait was somewhat abnormal, and he felt as though he was going to fall at multiplications. He denied noticing weakness, or numbness of the arms and legs. He also denied headache, neck pain, visual disturbances, facial droop, slurred speech, or difficulty swallowing. He reports no previous history of such symptoms and no history of strokes. He also denied chest pain, shortness of breath, fever, chills, cough, nausea, vomiting, or abdominal pain. He underwent an extensive evaluation in the emergency room with a brain CT that revealed cerebral atrophy with mild chronic small vessel ischemic disease. Chest x-ray was unremarkable and laboratory evaluation revealed WBC count 6.4, and Coumadin 13.4, platelets 234, INR 0.9, sodium 137, potassium 3.8, chloride 106, BUN 16, creatinine 0.98, glucose 108, troponin less than 0.012, coronavirus negative, UA unremarkable, and lactic acid 1.0. Review of Systems Pertinent positives and negatives as discussed in HPI, a complete review of systems was performed and all other systems are negative. Past Medical History Past Medical History: Hypertension, Prostate Disorder, Pulmonary Embolus (PE) Additional Past Medical History / Comment(s): PE to right lung History of Any Multi-Drug Resistant Organisms: None Reported Past Surgical History: No Surgical Hx Reported Additional Past Surgical History / Comment(s): prostate biopsy Past Anesthesia/Blood Transfusion Reactions: No Reported Reaction Past Psychological History: No Psychological Hx Reported Smoking Status: Never smoker Past Alcohol Use History: Occasional Past Drug Use History: None Reported - Past Family History Brother(s) Family Medical History: Coronary Artery Disease (CAD), Deep Vein Thrombosis (DVT), Pulmonary Embolus Father Family Medical History: Coronary Artery Disease (CAD), CVA/TIA, Deep Vein Thrombosis (DVT) Medications and Allergies Home Medications Medication Instructions Recorded Confirmed Type amLODIPine [Norvasc] 10 mg PO DAILY 06/17/18 10/19/19 History Apixaban [Eliquis] 5 mg PO BID 10/19/19 10/19/19 History Levofloxacin 750 mg PO DAILY 10 Days #10 tab 10/22/19 Rx Allergies Allergy/AdvReac Type Severity Reaction Status Date / Time No Known Allergies Allergy Verified 12/22/19 00:33 Physical Exam Vitals: Vital Signs Temp Pulse Resp BP Pulse Ox 12/22/19 00:29 97.9 F 71 20 135/75 98 Intake and Output 12/21/19 12/21/19 12/22/19 14:59 22:59 06:59 Other: # Voids 1 Weight 82 kg General: non toxic, no distress, appears at stated age, normal weight Derm: no unusual rashes/lesions no unusual ecchymoses, warm, dry Head: atraumatic, normocephalic, symmetric Eyes: EOMI, no lid lag, anicteric sclera, pupils equal round reactive to light ENT: Nose and ears atraumatic, no thrush, no pharyngeal erythema Neck: No thyromegaly, no cervical lymphadenopathy, trachea midline, supple Mouth: no lip lesion, mucus membranes moist Cardiovascular: S1S2 reg, no murmur, positive posterior tibial pulse bilateral, no edema, capillary refill less than 2 seconds Lungs: CTA bilateral, no rhonchi, no rales , no accessory muscle use Abdominal: soft, nontender to palpation, no guarding, no appreciable organomegaly, normal bowel sounds Ext: no gross muscle atrophy, no contractures, Neuro: CN II-XI grossly intact, no facial asymmetry noted, muscle strength 4+ out of 5 in the left upper extremity proximally and distally and 5 out of 5 elsewhere, left arm finger to nose abnormal with past pointing, sensation to light touch intact and equal bilaterally, Babinski downwards, left arm pronator drift present, dysdiadochokinesia of LUE present, intention tremor of LUE Psych: Alert, oriented, appropriate affect Results CBC & Chem 7: 12/22/19 01:02 12/22/19 01:02 Labs: Abnormal Lab Results - Last 24 Hours (Table) 12/22/19 Range/Units 01:02 Glucose 108 H (74-99) mg/dL Assessment and Plan Plan: Left arm dysmetria with tremor and limb ataxia, suspected cerebellar CVA -CT Head unremarkable -Neurology consult -MRI brain w/wo contrast ordered -Neurochecks -Continue with aspirin -Fall precautions -Carotid duplex, echocardiogram Hypertension -Allow permissive hypertension for now History of DVT/PE -Hold off on Eliquis until after MRI to confirm size of suspected CVA -Plan to restart Eliquis within 24-48 hours DVT prophylaxis -Eliquis The patient is admitted with an anticipated more than 2 midnight stay for evaluation of acute cva CODE STATUS: Full Code Discussed with: Patient Anticipated discharge date: 12/24/[address]: Home A total of 40 minutes was spent on the care of this complex patient more than 50% of the time was spent in counseling and care coordination.
[2019-12-22 08:51] LABS: Cholesterol 191 mg/dL (<200); HDL Cholesterol 47 mg/dL (40-60); LDL Cholesterol,Calculated 119 mg/dL (0-99); Triglycerides 126 mg/dL (<150)
--- NOTE | 2019-12-22 10:04 | MR ---
EXAMINATION TYPE: MR brain wo/w con DATE OF EXAM: 12/22/2019 COMPARISON: CT brain dated 12/22/2019 HISTORY: Loss of Left Arm Coordination. CVA TECHNIQUE: Multiplanar, multisequence images of the brain and brainstem is performed without and with IV contras t, utilizing 8 mL intravenous Gadavist . FINDINGS: Diffusion weighted images demonstrate multiple subcortical foci that are 4 mm or smaller in the right hemisphere involving the posterior right frontal lobe, parietal lobe, and occipital lobe a s well as the right thalamus and external capsule that demonstrate restricted diffusion. There is no extra-axial fluid collection. Moderate to severe burden nonspecific white matter changes seen in the periventricular and subcortical white matter with T2/FLAIR hyperintensity. The ventricula r system and cisternal spaces are symmetrically prominent compatible with age-related volume loss. Somewhat heterogenous enhancement of the enteric gland on postcontrast sagittal image 78 with a possi ble microadenoma. Dedicated pituitary mass protocol MR could further evaluate this finding. The crani ocervical junction appears within normal limits. Degree of dural enhancement is slightly prominent, h owever this is nonspecific finding. The dural venous sinuses appear patent. The visualized sinuses ar e clear other than scant mucosal thickening in the ethmoid sinuses and right-sided meliza bullosa cre ating leftward nasal septal deviation and the globes are intact. Prominent dural vein is incidentally noted on the right on T2 axial fat sat image 12. Trace amount of fluid in the left mastoid air cells . IMPRESSION: 1. Multiple acute lacunar infarcts that are subcortical in the right hemisphere involving the posteri or right frontal lobe, parietal lobe, occipital lobe, thalamus, and external capsule. Embolic disease should be considered. 2. Dural enhancement is slightly prominent diffusely, which is nonspecific and can be seen in meningi tis, intracranial hypotension, granulomatous diseases, or metastatic diseases along with other etiolo gies. This is of indeterminate clinical significance. 3. Heterogenous enhancement of the pituitary gland, possible pituitary microadenoma. If there are abn ormal laboratory values or further clinical concern dedicated pituitary MRI could be performed for fu rther evaluation. 4. Lateral to severe burden nonspecific white matter change, most commonly on the basis of chronic mi croangiopathy. A [place] level critical message alert has been initiated for Mona Ravi MD via the [employer] Critical Results System on 12/22/2019 10:02 AM. This message alert has been sent to Mona Ravi MD via the preferences provided by the clinician for the receipt of Radiology Critical Findings. Message ID [id number].
[2019-12-22] MEDS: ASPIRIN 325 MG TAB PO SCH (10:29)
--- NOTE | 2019-12-22 11:05 | US ---
EXAMINATION TYPE: US carotid duplex BILAT DATE OF EXAM: 12/22/2019 COMPARISON: NONE CLINICAL HISTORY: CVA. EXAM MEASUREMENTS: RIGHT: Peak Systolic Velocity (PSV) cm/sec ----- Right CCA: 46.2 ----- Right ICA: 120.0 ----- Right ECA: 89.2 ICA/CCA ratio: 2.6 RIGHT: End Diastole cm/sec ----- Right CCA: 11.3 ----- Right ICA: 35.3 ----- Right ECA: 14.1 LEFT: Peak Systolic Velocity (PSV) cm/sec ----- Left CCA: 55.5 ----- Left ICA: 75.6 ----- Left ECA: 66.0 ICA/CCA ratio: 1.4 LEFT: End Diastole cm/sec ----- Left CCA: 20.6 ----- Left ICA: 25.0 ----- Left ECA: 12.7 VERTEBRALS (direction of flow): Right Vertebral: Antegrade Left Vertebral: Antegrade Rhythm: Normal Bilateral wall thickening. Plaque visualized in bilateral bulbs. Right significant stenosis. No swathi vated velocities. IMPRESSION: 1. The degree of grayscale atherosclerosis in the right carotid bulb is out of proportion to velociti es. Velocities suggest a 50-69% stenosis and grayscale imaging suggests a higher grade stenosis. CTA neck is recommended for further evaluation. 2. No hemodynamically significant stenosis on the left. Criteria for Assigning % of Stenosis / Diameter reduction (Estimation based on the indirect measurements of the internal carotid artery velocities (ICA PSV). 1. Normal (no stenosis)=ICA PSV < 125 cm/s: ratio < 2.0: ICA EDV<40 cm/s. 2. Less than 50% stenosis=ICA PSV < 125 cm/s: ratio < 2.0: ICA EDV<40 cm/s. 3. 50 to 69% stenosis=ICA PSV of 125 to 230 cm/s: ration 2.0 ? 4.0: ICA EDV 40-100 cm/s. 4. Greater than 70% stenosis to near occlusion= ICA PSV > 230 cm/s: ratio > 4.0: ICA EDV > 100 cm/s. 5. Near occlusion= ICA PSV velocities may be low or undetectable: variable ratio and ICA EDV. 6. Total occlusion=unable to detect flow.
--- NOTE | 2019-12-22 12:49 | ECHOF ---
Referral Reason:CVA MEASUREMENTS -------- HEIGHT: 177.8 cm WEIGHT: 81.6 kg BP: RVIDd: 3.1 cm (< 3.3) IVSd: 1.5 cm (0.6 - 1.1) LVIDd: 3.5 cm (3.9 - 5.3) LVPWd: 1.3 cm (0.6 - 1.1) IVSs: 1.9 cm LVIDs: 2.4 cm LVPWs: 1.7 cm Ao Diam: 3.4 cm (2.0 - 3.7) AV Cusp: 2.2 cm (1.5 - 2.6) LA Diam: 3.4 cm (2.7 - 3.8) MV EXCURSION: 13.536 mm (> 18.000) MV EF SLOPE: 84 mm/s (70 - 150) EPSS: 0.3 cm MV E Karri: 0.85 m/s MV DecT: 143 ms MV A Karri: 0.64 m/s MV E/A Ratio: 1.33 AR PHT: 1253 ms RAP: 5.00 mmHg RVSP: 34.97 mmHg FINDINGS -------- Sinus rhythm. This was a technically good study. The left ventricular size is normal. There is mild concentric left ventricular hypertrophy. Overa ll left ventricular systolic function is low-normal with, an EF between 50 - 55 %. The right ventricle is normal in size. The left atrial size is normal. The right atrial size is normal. Aortic valve is trileaflet and is mildly thickened. There is mild aortic regurgitation. The mitral valve is normal. Mild mitral regurgitation is present. The tricuspid valve appears structurally normal. Mild tricuspid regurgitation present. Right vent ricular systolic pressure is normal at < 35 mmHg. There is no pulmonic regurgitation present. The aortic root size is normal. Normal inferior vena cava with normal inspiratory collapse consistent with estimated right atrial pre ssure of 5 mmHg. There is no pericardial effusion. CONCLUSIONS -------- 1. Sinus rhythm. 2. This was a technically good study. 3. The left ventricular size is normal. 4. There is mild concentric left ventricular hypertrophy. 5. Overall left ventricular systolic function is low-normal with, an EF between 50 - 55 %. 6. The right ventricle is normal in size. 7. The left atrial size is normal. 8. The right atrial size is normal. 9. Aortic valve is trileaflet and is mildly thickened. 10. There is mild aortic regurgitation. 11. The mitral valve is normal. 12. Mild mitral regurgitation is present. 13. The tricuspid valve appears structurally normal. 14. Mild tricuspid regurgitation present. 15. Right ventricular systolic pressure is normal at < 35 mmHg. 16. There is no pulmonic regurgitation present. 17. The aortic root size is normal. 18. Normal inferior vena cava with normal inspiratory collapse consistent with estimated right atrial pressure of 5 mmHg. 19. There is no pericardial effusion. [employer] SUPERVISOR: Poly Mosquera RDCS
[2019-12-22] MEDS: ATORVASTATIN 40 MG TAB PO SCH (13:44)
[2019-12-22] MEDS: APIXABAN 5 MG TAB PO SCH ×2 (13:44→20:57)
--- NOTE | 2019-12-22 14:00 | CT ---
EXAMINATION TYPE: CT angio head neck DATE OF EXAM: 12/22/2019 HISTORY: Right-sided acute stroke. Abnormal ultrasound. COMPARISON: Carotid ultrasound dated 12/22/2019 CT DLP: 1584.5 mGycm. Automated Exposure Control for Dose Reduction was Utilized. TECHNIQUE: CTA scan of the neck is performed without and with IV Contrast, patient injected with 65 ml mL of Isovue 370, axial images are obtained, coronal and sagittal reformatted images are reviewed. Three-D reconstructed images are created on an independent workstation and reviewed. FINDINGS: Carotid/Vascular Structures: There is a focal area of 80% stenosis of the left carotid bulb this ernie ures approximately 6 mm in length from axial image 45-46. Mixed atherosclerotic calcific and noncalci fic plaque is seen of the proximal left internal carotid artery with luminal narrowing of less than 5 0%. Conventional three-vessel branch pattern of the aortic arch is seen. Nonhemodynamically significant c alcific atheromatous plaquing is present of the subclavian ostia on the left. The common carotid jose sugey are patent without hemodynamically significant stenosis. The right carotid bulb demonstrates lum inal narrowing of less than 50% with approximately 50% stenosis seen of the proximal right internal c arotid artery also spanning a distance of 6 mm. The remaining visualized cervical portions of the int ernal carotid arteries are patent without hemodynamically significant stenosis. The vertebral arterie s are patent and codominant. Intracranial portions of the internal carotid arteries are patent without hemodynamically significant stenosis. There is nodular prominence of the anterior commuting artery on axial images 26 and 25 com patible with a 2 mm saccular aneurysm. Left posterior communicating artery is not seen and therefore [place] appears incomplete. The middle cerebral arteries demonstrate no hemodynamically sign ificant stenosis nor do the anterior cerebral arteries or posterior cerebral arteries. Other: Visualized portions of the brain are discussed on the MR brain dictation of the same date incl uding the acute stroke. The visualized lungs demonstrate scattered areas of atelectasis and centrilob ular moderate emphysematous change. Moderate to severe multilevel degenerative disc disease of the ce rvical spine is present. IMPRESSION: 1. High-grade stenosis of the left common carotid artery with a focal short segment area of stenosis of 80% spanning a distance of 6 mm. There is extent of the calcific and noncalcific atheromatous plaq uing into the proximal left internal carotid artery without further hemodynamically significant steno sis of the left internal carotid artery. 2. Approximately 50% stenosis of the right carotid bulb and proximal right internal carotid artery. 3. 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
--- NOTE | 2019-12-22 15:24 | P.CNNES ---
History of Present Illness Consult date: 12/22/19 Requesting physician: Joe Gonzalez Reason for Consult: Neuro evaluation History of Present Illness: Patient is a 79-year-old right-handed male, who came to the hospital for acute onset of left arm focal symptoms. Patient states that yesterday at around 11:30 AM he was at home, when he noticed he has an abrupt loss of function of the left arm. He had difficulty to pick glass of milk with the left hand and his left arm was not under his control. He felt he could not get his left arm to do what he wanted, not listening to his commands. He denied any problems with vision, speech, still facial droop, or symptoms in the lower limbs. Patient stayed home, thinking to get better, but finally came to the ER at midnight this morning. Patient's blood pressure on arrival was 135/75, pulse rate 71 temperature 97.9. Patient was not a candidate for TPA, as she came outside the window for TPA and also was on anticoagulation with Elliquis. Patient underwent CT head showed cerebral atrophy. Mild chronic small vessel ischemia. No acute intracranial abnormality. Chest x-ray showed no active cardiopulmonary disease, mild cardiomegaly. EKG shows sinus rhythm with first- degree AV block. Carotid Doppler showed degree of grayscale atherosclerosis in the right carotid bulb is out of proportion to velocities. Velocities suggest a 50-69% stenosis and grayscale imaging suggest a higher grade stenosis. CTA neck is recommended for further evaluation. No hemodynamically significant stenosis on the left. Plaque visualized and bilateral bulbs. Antegrade flow in both vertebral arteries. Patient underwent MRI of brain revealed multiple acute lacunar infarcts that are subcortical in the right hemisphere involving the posterior right frontal lobe, parietal lobe, occipital lobe, thalamus and external capsule. Embolic disease should be considered. Dural enhancement is slightly prominent diffusely, which is nonspecific and can be seen in meningitis, intracranial hypotension, granulomatous disease or metastatic disease along with other etiologies. This is of indeterminate clinical significance. Heterogeneous enhancement of the pituitary gland, possibly pituitary microadenoma. If there are abnormal laboratory values or further clinical concern, dedicated pituitary MRI could be performed for further evaluation. Moderate to severe burden nonspecific white matter changes, most commonly on the basis of chronic microangiopathy. Patient's CBC, CMP, PT/PTT, UA are negative. [place] virus PCR negative. Patient has history of hypertension, denies diabetes, nonsmoker. He drinks beer once in a while. 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 Patient is on Apixaban 5 mg twice a day. Patient states he is fully compliant with medication does not miss a dose. Review of Systems Denies headache, problem with the vision hoarseness Sutton dysphagia. Denies chest pain shortness of breath wheezing cough, abdominal pain nausea vomiting diarrhea. Denies neck or back pain,. All other review of systems unremarkable except as per HPI. Past Medical History Past Medical History: Hypertension, Prostate Disorder, Pulmonary Embolus (PE) Additional Past Medical History / Comment(s): PE to right lung History of Any Multi-Drug Resistant Organisms: None Reported Past Surgical History: No Surgical Hx Reported Additional Past Surgical History / Comment(s): prostate biopsy Past Anesthesia/Blood Transfusion Reactions: No Reported Reaction Past Psychological History: No Psychological Hx Reported Smoking Status: Never smoker Past Alcohol Use History: Occasional Past Drug Use History: None Reported - Past Family History Brother(s) Family Medical History: Coronary Artery Disease (CAD), Deep Vein Thrombosis (DVT), Pulmonary Embolus Father Family Medical History: Coronary Artery Disease (CAD), CVA/TIA, Deep Vein Thrombosis (DVT) Medications and Allergies Home Medications Medication Instructions Recorded Confirmed Type amLODIPine [Norvasc] 10 mg PO DAILY 06/17/18 12/22/19 History Apixaban [Eliquis] 5 mg PO BID 10/19/19 12/22/19 History Allergies Allergy/AdvReac Type Severity Reaction Status Date / Time No Known Allergies Allergy Verified 12/22/19 08:02 Physical Examination - Vital Signs Vital Signs: Vital Signs Temp Pulse Pulse Resp BP BP BP 12/22/19 11:28 97.7 F 55 L 16 127/82 12/22/19 08:00 97.6 F 63 16 128/77 12/22/19 04:43 97.9 F 68 68 16 131/77 131/77 12/22/19 04:39 97.9 F 68 16 131/77 12/22/19 00:29 97.9 F 71 20 135/75 Pulse Ox 12/22/19 11:28 98 12/22/19 08:00 98 12/22/19 04:43 97 12/22/19 04:39 97 12/22/19 00:29 98 Intake and Output 12/21/19 12/22/19 12/22/19 22:59 06:59 14:59 Intake Total 320 500 Balance 320 500 Intake: Intake, IV Titration 300 Amount Sodium Chloride 0.9% 1, 300 000 ml @ 100 mls/hr IV . Q10H LEILA Rx#:[id number] Oral 320 200 Other: Voiding Method Toilet # Voids 1 Weight 82 kg On examination patient is an elderly male, in no distress. He is ailyn rt awake oriented to time place and person. Speech and language functions are normal. Attention and concentration fund of knowledge is adequate. On cranial examination pupils are round and reactive to light, visual dc are full, extraocular muscles are intact. Face is symmetric, tongue protrudes the midline. Palatal elevation and sensation normal. On muscle strength testing patient has mild left pronator drift. The strength is completely normal in the arms and legs distally and proximally. Reflexes are 1+ and plantars downgoing. Sensory touch is equal with no neglect on double simultaneous termination. Patient is ataxic for [id number] on the left, but normal [id number] ankit ting bilaterally. Tone and bulk of muscles normal. Gait normal. There is no carotid bruit, S1 and S2 audible. Peripheral pulses present, no edema. Abdomen soft and nontender. Chest clear. Results - Laboratory Findings CBC and BMP: 12/22/19 01:02 12/22/19 01:02 Abnormal Lab Findings: Abnormal Labs 12/22/19 12/22/19 01:02 01:02 Glucose 108 H LDL Cholesterol, Calc 119 H Assessment and Plan Assessment: * 79-year-old male admitted with acute ataxia involving left upper extremity. MRI of the brain revealed multiple small areas of acute ischemic infarctions in the right hemispheric region. Rule out right ICA stenosis, rule out cardioembolic source. Patient is already on anticoagulation with Eliquis 5 mg twice a day. * History of DVTs 2 * Hypertension Plan: * Patient underwent CTA of head and neck, which revealed high-grade stenosis of the left common carotid artery with a focal short segment area of stenosis of 80% spanning a distance of 6 mm. Apparently this is the asymptomatic side. The right ICA, which is symptomatic has only 50% stenosis. Suggest vascular surgical consultation. * 2-D echo revealed EF 50-55%. Mild concentric LVH. Left atrial size is normal. No obvious embolic source. * Lipid panel with cholesterol 191, LDL 119, HDL 47, triglycerides 126. * Start aspirin regimen along with Apixaban to prevent CVA or related to cerebrovascular atherosclerotic disease. * Agree with Lipitor 40 mg daily. * Neurology coverage not available on the weekend.
[2019-12-23] MEDS: ASPIRIN 325 MG TAB PO SCH (08:48)
[2019-12-23] MEDS: APIXABAN 5 MG TAB PO SCH (08:49)
[2019-12-23] MEDS: SODIUM CHLORIDE 0.9% 1,000 ML IV SCH ×2 (08:49)
[2019-12-23] MEDS: ATORVASTATIN 40 MG TAB PO SCH (08:49)
--- NOTE | 2019-12-23 11:05 | CONS ---
CONSULTATION Mr. Tuttle is a 79-year-old male with a prior history of DVT and pulmonary embolism, who presented with lack of coordination on the left upper extremity. He was evaluated by Neurology and was diagnosed with acute ataxia. The patient has been on long-term anticoagulation with Eliquis 5 mg twice a day because of his history of DVT and PE. He was admitted to the hospital in October and at that time had an episode of paroxysmal atrial fibrillation. He had an echocardiogram during this admission that revealed a preserved left ventricular size and systolic function with no significant valvular disease. The patient activity is stable. Usually he has no symptoms of chest discomfort. No dyspnea. No dizziness. No palpitation. He has been in sinus mechanism since his admission. He denies any PND, orthopnea, or peripheral edema. His CT angiogram of his carotids showed a high-grade stenosis of the left common carotid artery with focal short segment stenosis of 80% and 50% in the right carotid bulb. His coronary risk factors are positive for hypertension. REVIEW OF SYSTEMS: RESPIRATORY system: He denies any recent wheezing or cough. No history of obstructive lung disease. GI system: No recent GI bleed. No peptic ulcer disease. system: No dysuria or hematuria. Nervous system: No prior history of stroke. PHYSICAL EXAMINATION: He is a 79-year-old male, alert, oriented, in no apparent distress. Blood pressure 132/80 with a heart rate in the 70s. HEAD: Normocephalic. EYES: Sclerae nonicteric. NECK: Good carotid upstroke. No jugular venous distention. LUNGS: Clear to auscultation. HEART: Regular rate and rhythm S1, S2. No S3. No rub. ABDOMEN: Soft, nontender. Positive bowel sounds. No organomegaly. EXTREMITIES: No edema. Intact distal pulses. IMPRESSION: 1. Evidence of cerebrovascular accident with ataxia of the left upper extremity, improving. 2. History of deep vein thrombosis and pulmonary embolism on chronic anticoagulation. 3. History of hypertension. 4. Episode of atrial fibrillation, paroxysmal during his last admission. 5. Carotid disease. RECOMMENDATIONS: From the cardiac standpoint, the patient is stable on the present regimen a statin was added to his regimen. No further cardiac workup is needed at this time. He will follow up with his primary care physician. We will see him on as-needed basis. Please feel free to call us for any questions. MMODL / IJN: [id number] /
[2019-12-23 11:36] VITALS: BP 144/91; PULSE 59; TEMP 98.2
--- NOTE | 2019-12-23 12:23 | P.DS ---
Providers Date of admission: 12/22/19 03:19 Expected date of discharge: 12/23/19 Attending physician: Mona Ravi MD Consults: 12/22/19 03:20 Consult Physician Routine Consulting Provider: Shelley Jones Consult Reason/Comments: neuro Do you want consulting provider notified?: Yes 12/23/19 07:29 Consult Physician Routine Consulting Provider: Dandre Cates Consult Reason/Comments: CVA Do you want consulting provider notified?: Yes 12/23/19 08:29 Consult Physician Routine Consulting Provider: John Younger Consult Reason/Comments: 70% bilateral internal carotid stenosis Do you want consulting provider notified?: Yes Primary care physician: Jaden Pacheco DO Hospital Course: Admitting diagnosis: 1. Left arm ataxia with tremor and limb ataxia, suspected cerebellar CVA 2. History of DVT/PE 3. Hypertension Discharge diagnosis: 1. Left arm tremor and limb ataxia resolved 2. Multiple acute lacunar infarcts 3. CAD with High-grade stenosis of the left common carotid artery with a focal short segment area of stenosis of 80% spanning a distance of 6 mm 4. History of DVT/PE 5. Hypertension The patient is a 79-year-old male with a PMH of PE/DVT and this is on Eliquis) hypertension, and BPH who presented to the ED with sudden onset of left arm ataxia. The patient reports that he was in his usual state of health until yesterday at about 2 PM when he noticed that his left arm felt strange. He feels as though he has lost coordination in the arm, and as though it is also somewhat weaker. During this time he also noticed that his gait was somewhat abnormal, and he felt as though he was going to fall at multiplications. He denied noticing weakness, or numbness of the arms and legs. He also denied headache, neck pain, visual disturbances, facial droop, slurred speech, or difficulty swallowing. He reports no previous history of such symptoms and no history of strokes. He also denied chest pain, shortness of breath, fever, chills, cough, nausea, vomiting, or abdominal pain. He underwent an extensive evaluation in the emergency room with a brain CT that revealed cerebral atrophy with mild chronic small vessel ischemic disease. Chest x-ray was unremarkable and laboratory evaluation revealed WBC count 6.4, and Coumadin 13.4, platelets 234, INR 0.9, sodium 137, potassium 3.8, chloride 106, BUN 16, creatinine 0.98, glucose 108, troponin less than 0.012, coronavirus negative, UA unremarkable, and lactic acid 1.0. Echocardiogram revealed normal sinus rhythm with overall left ventricular systolic function is low normal with an ejection fraction between 50-55% MRI of the brain revealed multiple acute lacunar infarcts that are subcortical in the right hemisphere involving the posterior right frontal lobe parietal lobe subdural lobe thalamus external capsule. CTA revealed high-grade stenosis of the left common carotid artery with a focal short segment area stenosis of 80% spanning a distance of 6 mm. Approximately 50% stenosis of the right carotid bulb and proximal right internal carotid artery. 2 mm saccular aneurysm of the anterior comminuted artery Patient is currently awaiting to be evaluated by vascular surgery for further discussion of intervention. Per patient he does not want any intervention for carotid artery stenosis at this time. His brother from that surgery he states. Cardiology did evaluate the patient and continued his Eliquis with aspirin. Patient was evaluated by neurology. Patient's left arm ataxia and difficulty walking have resolved patient is back to normal self. Patient seen and examined at chair side and is eager to go home. Patient will always be discharged once cleared by vascular surgery and evaluated by PT/OT. Follow-up with neurology in 1-2 weeks Follow-up with vascular surgery in 2-7 days Follow-up with PCP in 2-7 days Vitals temperature 98.2F heart rate 59 respiratory rate 16 blood pressure 144/91 oxygen 98% on room air General: [non toxic], [no distress], [appears at stated age] Derm: [warm], [dry] Head: [atraumatic], [normocephalic], [symmetric] Eyes: [EOMI], [no lid lag], [anicteric sclera] Mouth: [no lip lesion], [mucus membranes moist] Cardiovascular: [S1S2 reg], [no murmur], [positive posterior tibial pulse bilateral], Lungs: [CTA bilateral], [no rhonchi, no rales] , [no accessory muscle use] Abdominal: [soft], [ nontender to palpation], [no guarding], [no appreciable organomegaly] Ext: [no gross muscle atrophy], [no edema], [no contractures] Neuro: [ CN II-XI grossly intact], [no focal neuro deficits] Psych: [Alert], [oriented], [appropriate affect] Condition good Disposition home once cleared by vascular surgery and evaluated by PT/OT Diet healthy heart Activity as tolerated Greater than 60 minutes spent coordinating care and counseling patient. Patient Condition at Discharge: Fair Plan - Discharge Summary Discharge Rx Participant: No New Discharge Prescriptions: No Action amLODIPine [Norvasc] 10 mg PO DAILY Apixaban [Eliquis] 5 mg PO BID Discharge Medication List amLODIPine [Norvasc] 10 mg PO DAILY 06/17/18 [History] Apixaban [Eliquis] 5 mg PO BID 10/19/19 [History] Follow up Appointment(s)/Referral(s): Jaden Pacheco DO [Primary Care Provider] - 1-2 days
--- NOTE | 2019-12-23 14:20 | P.GSCN ---
History of Present Illness Consult date: 12/23/19 Reason for Consult: Carotid stenosis. History of present illness: Patient is a 79-year-old male who earlier this week experienced approximately 24-hour history of left arm weakness. He denies any previous similar symptoms. No other symptoms such as leg paresthesia/paralysis, facial droop, amaurosis fugax, slurring of speech etc. were experienced. The patient did present to the emergency room for further evaluation. Workup included both a carotid duplex study and CTA of the carotids. He was started on both aspirin and Plavix therapy. Patient denies any claudication type symptoms. The patient reports that both his father and brother of neurologic issues related to carotid occlusive disease. Social history: Patient denies any tobacco use. Physical examination revealed a pleasant appearing male who is alert cooperative no apparent distress. HEENT: Head was normocephalic, eyes PERRLA EOMI sclerae conjunctive are clear. Neck: No adenopathy or bruit noted. Heart: Regular rhythm without murmur noted. Abdomen: Soft with normoactive bowel sounds. No hepatic or splenic organomegaly were noted and there is no palpable abdominal aortic aneurysm. Extremities: Femoral, popliteal and pedal pulses are intact bilaterally. There is no cyanosis or edema. Neurologic exam: Equal motor strength in the upper lower extremities is noted. Tongue is midline. There is no facial droop. Review of carotid duplex imaging demonstrates heavily calcified plaquing at the origin of the internal carotid artery bilaterally. I believe the degree of stenosis is underestimated on this exam. Review of CTA suggest 80% stenosis of the left ICA and 50-60% stenosis of the right ICA. Because of the heavily calcified nature of the plaque I believe this is also underestimated. Impression: #1: Hemodynamically severe bilateral carotid stenosis with the right side being symptomatic. Recommendation: #1: Agree with initiation of aspirin and statin therapy. #2: Patient is currently being discharge follow him in the office in the next week or so. Eventually the patient would benefit from carotid endarterectomy. Past Medical History Past Medical History: Hypertension, Prostate Disorder, Pulmonary Embolus (PE) Additional Past Medical History / Comment(s): PE to right lung History of Any Multi-Drug Resistant Organisms: None Reported Past Surgical History: No Surgical Hx Reported Additional Past Surgical History / Comment(s): prostate biopsy Past Anesthesia/Blood Transfusion Reactions: No Reported Reaction Past Psychological History: No Psychological Hx Reported Smoking Status: Never smoker Past Alcohol Use History: Occasional Past Drug Use History: None Reported - Past Family History Brother(s) Family Medical History: Coronary Artery Disease (CAD), Deep Vein Thrombosis (DVT), Pulmonary Embolus Father Family Medical History: Coronary Artery Disease (CAD), CVA/TIA, Deep Vein Thrombosis (DVT) Medications and Allergies Home Medications Medication Instructions Recorded Confirmed Type amLODIPine [Norvasc] 10 mg PO DAILY 06/17/18 12/22/19 History Apixaban [Eliquis] 5 mg PO BID 10/19/19 12/22/19 History Aspirin 325 mg PO DAILY tab 12/23/19 Rx Atorvastatin [Lipitor] 40 mg PO DAILY 30 Days #30 tab 12/23/19 Rx Allergies Allergy/AdvReac Type Severity Reaction Status Date / Time No Known Allergies Allergy Verified 12/22/19 08:02 Surgical - Exam Osteopathic Statement: *. No significant issues noted on an osteopathic structural exam other than those noted in the History and Physical/Consult. Vital Signs Temp Pulse Resp BP Pulse Ox 97.9 F 71 20 135/75 98 12/22/19 00:29 12/22/19 00:29 12/22/19 00:29 12/22/19 00:29 12/22/19 00:29 Results - Labs 12/22/19 01:02 12/22/19 01:02
--- NOTE | 2019-12-26 13:39 | CDI ---
Documentation Clarification Form Date: 12/26/19 From: Adriane Sharp CCS Phone: If you have a question about this query, please contact Aylin Lindsey, Clinical Resource Manager at [phone] between 8am and 5pm. Admit Date: 12/22/19 Discharge Date: 12/23/19 Patient Name: Miguel A Gamboa Visit Number: [id number] ATTENTION: The Clinical Documentation Specialists (CDI) and [facility] Coding Staff appreciate your assistance in clarifying documentation. Please respond to the clarification below the line at the bottom and electronically sign. The CDI & [facility] Coding staff will review the response and follow-up if needed. Please note: Queries are made part of the Legal Health Record. If you have any questions, please contact the author of this message via ITS. Dear Dr. Ho CVA is documented as a diagnosis in the 12/21 Consult and DS document: Multiple acute lacunar infarcts Consult 12/22 documents: Hemodynamically severe bilateral carotid stenosis with the right side being symptomatic. Review of CTA suggest 80% stenosis of the left ICA and 50-60% stenosis of the right ICA.Because of the heavily calcified nature of the plaque I believe this is also underestimated. History/risk factors: Clinical Indicators: CT: 80% stenosis of the left ICA and 50-60% stenosis of the right ICA. MRI/MRA: Multiple acute lacunar infarcts that are subcortical in the right hemisphere involving the posterior right frontal lobe, parietal lobe, occipital lobe, thalamus, and external capsule.Embolic disease should be considered. Treatment: Aspirin 40 mg PO Daily, Lipitor 40 mg PO Daily Other- Giliberto:Patient is currently being discharge follow him in the office in the next week or so.Eventually the patient would benefit from carotid endarterectomy. In your professional opinion, please clarify which of the following: Cause of Stroke/CVA: Bilateral Carotid Stenosis Right Carotid Stenosis Left Carotid Stenosis Occlusion cerebral artery Other (please specify) Unable to Determine Bilateral Carotid artery stenosis MTDD
== END 2019-12-23 14:52 | disposition home or self-care (01) | DRG 66 ==
LOC: EC 00:23 → 3SCARD 03:19
PROVIDERS: ADMIT Internal Medicine; ATTEND Internal Medicine
DX: I63.233 Cerebral infarction due to unspecified occlusion or stenosis of bilateral carotid arteries (principal); G31.9 Degenerative disease of nervous system, unspecified; I48.0 Paroxysmal atrial fibrillation; I73.9 Peripheral vascular disease, unspecified; Z11.59 Encounter for screening for other viral diseases; R27.0 Ataxia, unspecified; R40.2362 Coma scale, best motor response, obeys commands, at arrival to emergency department; R40.2142 Coma scale, eyes open, spontaneous, at arrival to emergency department; R40.2252 Coma scale, best verbal response, oriented, at arrival to emergency department; R29.701 NIHSS score 1; R48.2 Apraxia; R27.8 Other lack of coordination; I10 Essential (primary) hypertension; N40.0 Benign prostatic hyperplasia without lower urinary tract symptoms; R25.1 Tremor, unspecified; I44.30 Unspecified atrioventricular block; Z79.899 Other long term (current) drug therapy; Z79.01 Long term (current) use of anticoagulants; Z86.711 Personal history of pulmonary embolism; Z98.890 Other specified postprocedural states; Z86.718 Personal history of other venous thrombosis and embolism; Z82.49 Family history of ischemic heart disease and other diseases of the circulatory system; Z83.2 Family history of diseases of the blood and blood-forming organs and certain disorders involving the immune mechanism; Z82.3 Family history of stroke
CPT/HCPCS: 36415; 70450; 70496; 70498; 70553; 71046; 80053; 80061; 81003; 83605; 83735; 84100; 84484; 85025; 85610; 85730; 87635; 93005; 93306; 93880; 96360; 99291

== ENCOUNTER 2023-07-17 01:08 | Emergency (ER) | payer OTHER, MEDICARE ==
[2023-07-17 01:43] VITALS: RESP 18; TEMP 97.7
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
[2023-07-17] MEDS ORDERED: BACITRACIN OINT 1 EACH PACKET TOPICAL ONE (03:25)
[2023-07-17 03:41] VITALS: BP 152/98; PULSE 64
== END 2023-07-17 03:44 | disposition home or self-care (01) ==
LOC: EC 01:08
DX: S80.812A Abrasion, left lower leg, initial encounter (principal); S80.811A Abrasion, right lower leg, initial encounter; I10 Essential (primary) hypertension; Z79.899 Other long term (current) drug therapy; V89.2XXA Person injured in unspecified motor-vehicle accident, traffic, initial encounter; Y92.411 Interstate highway as the place of occurrence of the external cause
CPT/HCPCS: 70450; 71046; 72125; 93005; 99284